=== PATIENT | male | born 1935 | race Caucasian/White ===

== ENCOUNTER → 2019-11-24 | Outpatient (CLI) | payer MEDICARE ==
--- NOTE | 2019-11-25 10:38 | ECHOF ---
Referral Reason:I25.10 Atherosclerotic heart disease MEASUREMENTS -------- HEIGHT: 185.4 cm WEIGHT: 82.6 kg BP: 193/102 RVIDd: 3.5 cm (< 3.3) IVSd: 1.4 cm (0.6 - 1.1) LVIDd: 4.5 cm (3.9 - 5.3) LVPWd: 1.4 cm (0.6 - 1.1) IVSs: 1.8 cm LVIDs: 3.8 cm LVPWs: 1.8 cm LA Diam: 4.2 cm (2.7 - 3.8) LAESV Index (A-L): 36.28 ml/m Ao Diam: 3.3 cm (2.0 - 3.7) AV Cusp: 2.3 cm (1.5 - 2.6) MV EXCURSION: 11.800 mm (> 18.000) MV EF SLOPE: 102 mm/s (70 - 150) EPSS: 1.3 cm MV E Ignacio: 0.70 m/s MV DecT: 373 ms MV A Ignacio: 1.01 m/s MV E/A Ratio: 0.70 RAP: 5.00 mmHg RVSP: 22.97 mmHg FINDINGS -------- Sinus rhythm. This was a technically adequate study. History of open heart surgery The left ventricular size is normal. There is moderate concentric left ventricular hypertrophy. O verall left ventricular systolic function is mild-moderately impaired with, an EF between 40 - 45 %. The right ventricle is mildly enlarged. LA is moderately dilated 34-39 ml/m2 The right atrium is normal in size. Interatrial and interventricular septum intact. The aortic valve is trileaflet and appears structurally normal. The mitral valve leaflets are mildly thickened. Mild mitral regurgitation is present. Trace tricuspid regurgitation present. Right ventricular systolic pressure is normal at < 35 mmHg. Trace/mild (physiologic) pulmonic regurgitation. The aortic root size is normal. Normal inferior vena cava with normal inspiratory collapse consistent with estimated right atrial pre ssure of 5 mmHg. There is no pericardial effusion. CONCLUSIONS -------- 1. Sinus rhythm. 2. This was a technically adequate study. 3. History of open heart surgery 4. The left ventricular size is normal. 5. There is moderate concentric left ventricular hypertrophy. 6. Overall left ventricular systolic function is mild-moderately impaired with, an EF between 40 - 45 %. 7. The right ventricle is mildly enlarged. 8. LA is moderately dilated 34-39 ml/m2 9. The right atrium is normal in size. 10. Interatrial and interventricular septum intact. 11. The aortic valve is trileaflet and appears structurally normal. 12. The mitral valve leaflets are mildly thickened. 13. Mild mitral regurgitation is present. 14. Trace tricuspid regurgitation present. 15. Right ventricular systolic pressure is normal at < 35 mmHg. 16. Trace/mild (physiologic) pulmonic regurgitation. 17. The aortic root size is normal. 18. Normal inferior vena cava with normal inspiratory collapse consistent with estimated right atrial pressure of 5 mmHg. 19. There is no pericardial effusion. MANAGER TRAINEE: Yuki Bermeo RDCS
== END | disposition home or self-care (01) ==
LOC: RADECHMAIN 10:28
PROVIDERS: ATTEND Internal Medicine Geriatric Medicine
DX: I34.0 Nonrheumatic mitral (valve) insufficiency (principal); I37.1 Nonrheumatic pulmonary valve insufficiency; I51.7 Cardiomegaly; I25.10 Atherosclerotic heart disease of native coronary artery without angina pectoris
CPT/HCPCS: 93306

== ENCOUNTER 2020-03-03 19:23 | Emergency (ER) | payer MEDICARE ==
[2020-03-03 20:48] VITALS: RESP 20
[2020-03-03 20:48] LABS: Basophils % (A) 1 %; Eosinophils # (A) 0.3 k/uL (0-0.7); Eosinophils % (A) 5 %; HCT 35.7 % (39.0-53.0); HGB 11.5 gm/dL (13.0-17.5); Lymphocytes # (A) 1.1 k/uL (1.0-4.8); Lymphocytes % (A) 21 %; MCH 31.2 pg (25.0-35.0); MCHC 32.1 g/dL (31.0-37.0); MCV 97.3 fL (80.0-100.0); Monocytes # (A) 0.6 k/uL (0-1.0); Monocytes % (A) 11 %; Neutrophils # (A) 3.1 k/uL (1.3-7.7); Neutrophils % (A) 60 %; Platelet Count 161 k/uL (150-450); RBC 3.67 m/uL (4.30-5.90); RDW 13.1 % (11.5-15.5); WBC 5.2 k/uL (3.8-10.6)
[2020-03-03 20:54] LABS: Albumin 3.1 g/dL (3.5-5.0); Magnesium 1.9 mg/dL (1.6-2.3); Potassium 3.9 mmol/L (3.5-5.1); Total Bilirubin 0.5 mg/dL (0.2-1.3); Total Protein 5.9 g/dL (6.3-8.2)
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
--- NOTE | 2020-03-03 21:31 | XR ---
EXAMINATION TYPE: XR chest 2V DATE OF EXAM: 03/03/2020 COMPARISON: 06/27/2015 HISTORY: Chest pain TECHNIQUE: 2 view chest FINDINGS: The heart size is normal. Pulmonary vasculature is normal. There is a left lower lobe infil trate. Small left pleural effusion is present. Mild right lower lobe infiltrate may be present. IMPRESSION: 1. Bibasilar infiltrates with a small left pleural effusion.
[2020-03-03] MEDS ORDERED: FUROSEMIDE 10 MG/ML 2 ML VIAL IV ONE (21:53)
[2020-03-03 22:01] VITALS: BP 172/86; PULSE 76; TEMP 97.1
== END 2020-03-03 22:30 | disposition home or self-care (01) ==
LOC: EC 19:23
DX: R60.0 Localized edema (principal); J90 Pleural effusion, not elsewhere classified; D64.9 Anemia, unspecified; R94.4 Abnormal results of kidney function studies; R79.89 Other specified abnormal findings of blood chemistry; M79.606 Pain in leg, unspecified; I25.10 Atherosclerotic heart disease of native coronary artery without angina pectoris; J44.9 Chronic obstructive pulmonary disease, unspecified; E11.9 Type 2 diabetes mellitus without complications; E78.5 Hyperlipidemia, unspecified; I10 Essential (primary) hypertension; I25.2 Old myocardial infarction; N40.0 Benign prostatic hyperplasia without lower urinary tract symptoms; M19.90 Unspecified osteoarthritis, unspecified site; Z86.73 Personal history of transient ischemic attack (TIA), and cerebral infarction without residual deficits; Z95.1 Presence of aortocoronary bypass graft; Z95.818 Presence of other cardiac implants and grafts; Z96.653 Presence of artificial knee joint, bilateral; Z87.891 Personal history of nicotine dependence; Z79.84 Long term (current) use of oral hypoglycemic drugs; Z79.899 Other long term (current) drug therapy
CPT/HCPCS: 36415; 93005; 83880; 80053; 83735; 84484; 85025; 71046; 99284; 96374; J1940

== ENCOUNTER → 2020-03-16 | Outpatient (CLI) | payer MEDICARE ==
--- NOTE | 2020-03-17 12:00 | ECHOF ---
Referral Reason:I50.9 Heart failure, unspecified MEASUREMENTS -------- HEIGHT: 180.3 cm WEIGHT: 81.6 kg BP: RVIDd: 3.6 cm (< 3.3) IVSd: 1.3 cm (0.6 - 1.1) LVIDd: 4.1 cm (3.9 - 5.3) LVPWd: 1.3 cm (0.6 - 1.1) IVSs: 2.0 cm LVIDs: 2.6 cm LVPWs: 2.4 cm LAESV Index (A-L): 22.20 ml/m Ao Diam: 2.8 cm (2.0 - 3.7) AV Cusp: 2.2 cm (1.5 - 2.6) LA Diam: 3.1 cm (2.7 - 3.8) MV EXCURSION: 18.742 mm (> 18.000) MV EF SLOPE: 99 mm/s (70 - 150) EPSS: 2.1 cm MV E Ignacio: 0.71 m/s MV DecT: 300 ms MV A Ignacio: 0.94 m/s MV E/A Ratio: 0.75 RAP: 5.00 mmHg RVSP: 15.70 mmHg TAPSE: 19.78 mm FINDINGS -------- Sinus rhythm with extra systolic beats. This was a technically good study. The left ventricular size is normal. There is mild concentric left ventricular hypertrophy. Overa ll left ventricular systolic function is low-normal with, an EF between 50 - 55 %. There is paradox ical/dysynergic septal motion consistent with post-operative status. The diastolic filling pattern is normal for the age of the patient 10.40. The right ventricle is mildly enlarged. The right ventricular systolic function is normal. The left atrial size is normal. Normal LA size by volume 22+/-6 ml/m2. The right atrial size is normal. The aortic valve is trileaflet and appears structurally normal. The mitral valve is normal. There is trace mitral regurgitation. The tricuspid valve appears structurally normal. Mild tricuspid regurgitation present. Right vent ricular systolic pressure is normal at < 35 mmHg. There is no pulmonic regurgitation present. The aortic root size is normal. IVC Not well visulized. There is no pericardial effusion. CONCLUSIONS -------- 1. Sinus rhythm with extra systolic beats. 2. This was a technically good study. 3. The left ventricular size is normal. 4. There is mild concentric left ventricular hypertrophy. 5. Overall left ventricular systolic function is low-normal with, an EF between 50 - 55 %. 6. There is paradoxical/dysynergic septal motion consistent with post-operative status. 7. The diastolic filling pattern is normal for the age of the patient 10.40 8. The right ventricle is mildly enlarged. 9. The right ventricular systolic function is normal. 10. The left atrial size is normal. 11. Normal LA size by volume 22+/-6 ml/m2. 12. The right atrial size is normal. 13. The aortic valve is trileaflet and appears structurally normal. 14. The mitral valve is normal. 15. There is trace mitral regurgitation. 16. The tricuspid valve appears structurally normal. 17. Mild tricuspid regurgitation present. 18. Right ventricular systolic pressure is normal at < 35 mmHg. 19. There is no pulmonic regurgitation present. 20. The aortic root size is normal. 21. IVC Not well visulized. 22. There is no pericardial effusion. MEDICAL EDUCATION MANAGER: Katalina Bethea RDCS
== END | disposition home or self-care (01) ==
LOC: RADECHMAIN 13:47
PROVIDERS: ATTEND Internal Medicine Geriatric Medicine
DX: I07.1 Rheumatic tricuspid insufficiency (principal)
CPT/HCPCS: 93306

== ENCOUNTER 2020-04-08 16:07 | Inpatient (IN) | payer MEDICARE ==
[2020-04-08] MEDS ORDERED: DILTIAZEM 125 MG in SODIUM CHLORIDE 0.9% 100 ML IV SCH (16:30)
[2020-04-08] MEDS ORDERED: SODIUM CHLORIDE 0.9% 1,000 ML IV STA (16:30)
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
[2020-04-08 16:59] LABS: Basophils % (A) 0 %; Eosinophils # (A) 0.1 k/uL (0-0.7); Eosinophils % (A) 2 %; HCT 43.3 % (39.0-53.0); HGB 13.6 gm/dL (13.0-17.5); Lymphocytes # (A) 0.6 k/uL (1.0-4.8); Lymphocytes % (A) 8 %; MCH 31.2 pg (25.0-35.0); MCHC 31.5 g/dL (31.0-37.0); MCV 99.1 fL (80.0-100.0); Mean Platelet Volume 9.7; Monocytes # (A) 0.4 k/uL (0-1.0); Monocytes % (A) 6 %; Neutrophils # (A) 6.3 k/uL (1.3-7.7); Neutrophils % (A) 84 %; Platelet Count 125 k/uL (150-450); RBC 4.37 m/uL (4.30-5.90); RDW 13.1 % (11.5-15.5); WBC 7.5 k/uL (3.8-10.6)
--- NOTE | 2020-04-08 17:14 | XR ---
EXAMINATION TYPE: XR chest 2V DATE OF EXAM: 04/08/2020 COMPARISON: 03/03/2020 HISTORY: Chest pain TECHNIQUE: There is some coarse interstitial infiltrate in the lower lobes. There is blunting left co stophrenic angle. There are sternal wires. There are chest leads. Bony thorax is intact. FINDINGS: IMPRESSION: Interstitial pulmonary infiltrates. There is some coalescent infiltrate left lower lobe w ith pleural fluid improved slightly compared to old exam. No gross heart failure.
[2020-04-08 17:37] LABS: Albumin 3.9 g/dL (3.5-5.0); Calcium 8.8 mg/dL (8.4-10.2); Magnesium 1.9 mg/dL (1.6-2.3); Total Bilirubin 0.7 mg/dL (0.2-1.3); Total Protein 6.9 g/dL (6.3-8.2)
[2020-04-08 17:43] LABS: Potassium 4.6 mmol/L (3.5-5.1)
[2020-04-08 17:45] LABS: Partial Thromboplastin Time 22.8 sec (22.0-30.0); Prothrombin Time 10.7 sec (9.0-12.0)
[2020-04-08] MEDS ORDERED: HEPARIN SODIUM,PORCINE 5,000 UNIT/ML 1 ML VIAL IV ONE (18:14)
[2020-04-08] MEDS ORDERED: NITROGLYCERIN SL TABS 0.4 MG TAB SUBLINGUAL PRN (18:16)
[2020-04-08] MEDS: HEPARIN SOD,PORK IN 0.45% NACL 25,000 UNIT in 0.45% NACL 1 250ML.BAG IV SCH (18:44)
[2020-04-08 20:39] LABS: Glucose,Whole Blood 138 mg/dL (75-99)
[2020-04-09 06:17] LABS: Glucose,Whole Blood 104 mg/dL (75-99)
[2020-04-09] MEDS: INSULIN ASPART (NovoLOG) 100 UNIT/ML VIAL SQ SCH ×4 (06:26→20:54)
[2020-04-09] MEDS: SUCRALFATE 1 GM TAB PO SCH ×3 (06:27→17:46)
[2020-04-09 08:22] LABS: Cholesterol 105 mg/dL (<200); HDL Cholesterol 38 mg/dL (40-60); LDL Cholesterol,Calculated 57 mg/dL (0-99); Triglycerides 51 mg/dL (<150)
[2020-04-09] MEDS ORDERED: ASPIRIN 325 MG TAB PO SCH (09:00)
[2020-04-09] MEDS: SPIRONOLACTONE 25 MG TAB PO SCH (09:41)
[2020-04-09] MEDS: GABAPENTIN 100 MG CAP PO SCH ×2 (09:41→20:03)
[2020-04-09] MEDS: FUROSEMIDE 40 MG TAB PO SCH (09:42)
[2020-04-09] MEDS: TAMSULOSIN 0.4 MG CAP.ER.24H PO SCH (09:42)
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
[2020-04-09 12:20] LABS: Glucose,Whole Blood 105 mg/dL (75-99)
[2020-04-09 12:42] LABS: T4, Free (Free Thyroxine) 1.24 ng/dL (0.78-2.19)
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
[2020-04-09 17:32] LABS: Glucose,Whole Blood 86 mg/dL (75-99)
[2020-04-09] MEDS: APIXABAN 2.5 MG TABLET PO SCH (20:03)
[2020-04-09] MEDS: ATORVASTATIN 20 MG TAB PO SCH (20:03)
[2020-04-09 20:08] LABS: Glucose,Whole Blood 110 mg/dL (75-99)
[2020-04-09] MEDS ORDERED: APIXABAN 5 MG TAB PO SCH (21:00)
[2020-04-10 06:13] LABS: Glucose,Whole Blood 108 mg/dL (75-99)
[2020-04-10] MEDS: INSULIN ASPART (NovoLOG) 100 UNIT/ML VIAL SQ SCH ×4 (06:57→20:43)
[2020-04-10] MEDS: SUCRALFATE 1 GM TAB PO SCH ×3 (06:58→18:27)
[2020-04-10] MEDS: HEPARIN SOD,PORK IN 0.45% NACL 25,000 UNIT in 0.45% NACL 1 250ML.BAG IV SCH (08:08)
[2020-04-10] MEDS: APIXABAN 2.5 MG TABLET PO SCH ×2 (09:36→20:42)
[2020-04-10] MEDS: TAMSULOSIN 0.4 MG CAP.ER.24H PO SCH (09:36)
[2020-04-10] MEDS: FUROSEMIDE 40 MG TAB PO SCH (09:36)
[2020-04-10] MEDS: GABAPENTIN 100 MG CAP PO SCH ×2 (09:36→20:43)
[2020-04-10] MEDS: SPIRONOLACTONE 25 MG TAB PO SCH (09:36)
[2020-04-10] MEDS: ASPIRIN 81 MG PO SCH (09:36)
[2020-04-10 11:24] LABS: Calcium 8.4 mg/dL (8.4-10.2); Potassium 4.3 mmol/L (3.5-5.1)
[2020-04-10 11:55] LABS: Glucose,Whole Blood 98 mg/dL (75-99)
[2020-04-10] MEDS: METOPROLOL TARTRATE 25 MG TAB PO SCH ×2 (13:21→20:45)
[2020-04-10] MEDS: LOSARTAN 50 MG TAB PO SCH (13:21)
--- NOTE | 2020-04-10 14:31 | PN ---
PROGRESS NOTE Mr. Stock is a gentleman who came in with her atrial fibrillation, rapid ventricular rate, converted to sinus rhythm. He is resting comfortably. His blood pressure is slightly elevated. I am switching him to amlodipine, decreased to 5 mg daily at bedtime and losartan 50 mg daily. He is resting comfortably, maintaining sinus rhythm. Denies any chest discomfort at the time of my evaluation. The patient can be discharged today if he remains stable with increased activity. I will, however, recommend that we perform an echocardiogram to assess LV function prior to discharge. Vitals are stable, no JVD, S1-S2 heard normally. Short systolic murmur noted. Lungs reveal diminished air entry. Abdomen and lower extremity exam unchanged. Plan is to continue current medications including his apixaban 2.5 mg b.i.d. because of creatinine being slightly high. I am placing him on Lopressor 25 mg b.i.d., losartan 50 mg daily. Increase activity and he can hopefully be discharged later on today after checking the echo. Discussed my thoughts in detail with the patient. Vital signs are stable, no JVD, S1-S2 heard normally, short systolic murmur. Lungs reveal improved entry. Abdomen and lower extremity exam unchanged. MMODL / IJN: [id number] /
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
[2020-04-10 17:10] LABS: Glucose,Whole Blood 137 mg/dL (75-99)
[2020-04-10] MEDS: ATORVASTATIN 20 MG TAB PO SCH (20:42)
[2020-04-10 20:45] LABS: Glucose,Whole Blood 99 mg/dL (75-99)
[2020-04-10] MEDS ORDERED: amLODIPine 5 MG TAB PO SCH (21:00)
--- NOTE | 2020-04-10 23:01 | EEG ---
ELECTROENCEPHALOGRAM REPORT DATE OF SERVICE: 04/10/2020. REPORTED HISTORY: This is an 85-year-old gentleman with a history of asthma, coronary artery disease, COPD, stroke, hypertension, who presented to the hospital after feeling weak and having a syncopal episode. He has been complaining of lightheadedness. He does have some recent falls over the last couple of weeks. EEG TYPE: This is a 21-channel routine EEG recording. DESCRIPTION: Wakefulness and drowsiness are obtained during the study. During wakefulness, there is a posterior-dominant rhythm of low to moderate voltage, reactive. It is well modulated, of 7 to 7.5 Hz activity that is well sustained. During drowsiness, there is slowing and attenuation of the background activity. There is no stage II sleep activity seen during the study. There is rare generalized rhythmic delta activity with frontal predominance. Interictal and ictal: None. ACTIVATION PROCEDURE: Photic stimulation did not evoke positive driving response. Hyperventilation was not performed because of the patient's clinical history. EEG DIAGNOSIS: This is an abnormal routine EEG due to: 1. Rare generalized rhythmic delta activity with frontal predominance. 2. Mild background slowing. CLINICAL INTERPRETATION: The background slowing is suggestive of presence of mild to moderate encephalopathy of unspecific etiology. There is no epileptiform or seizure noted during this routine EEG. Clinical correlation is recommended. MMODL / IJN: [id number] /
[2020-04-11 03:39] VITALS: RESP 18
[2020-04-11 06:06] LABS: Glucose,Whole Blood 97 mg/dL (75-99)
[2020-04-11] MEDS: INSULIN ASPART (NovoLOG) 100 UNIT/ML VIAL SQ SCH (06:11)
[2020-04-11 06:42] LABS: Calcium 8.5 mg/dL (8.4-10.2); Potassium 4.4 mmol/L (3.5-5.1)
[2020-04-11] MEDS: SUCRALFATE 1 GM TAB PO SCH (06:48)
[2020-04-11] MEDS: FUROSEMIDE 40 MG TAB PO SCH (08:42)
[2020-04-11] MEDS: GABAPENTIN 100 MG CAP PO SCH (08:42)
[2020-04-11] MEDS: APIXABAN 2.5 MG TABLET PO SCH (08:42)
[2020-04-11] MEDS: METOPROLOL TARTRATE 25 MG TAB PO SCH (08:42)
[2020-04-11] MEDS: ASPIRIN 81 MG PO SCH (08:42)
[2020-04-11] MEDS: SPIRONOLACTONE 25 MG TAB PO SCH (08:42)
[2020-04-11] MEDS: LOSARTAN 50 MG TAB PO SCH (08:42)
[2020-04-11] MEDS: TAMSULOSIN 0.4 MG CAP.ER.24H PO SCH (08:42)
[2020-04-11 08:45] VITALS: BP 177/74; PULSE 65; TEMP 97.4
--- NOTE | 2020-04-11 12:17 | PN ---
PROGRESS NOTE This is a gentleman, 85 years of age with a history of prior bypass surgery, came in with paroxysmal atrial fibrillation, was seen and evaluated by Dr. Harris. He is now in sinus rhythm, maintaining he is on anticoagulation and beta blockers doing well, ambulating without symptoms. Vitals are stable. No JVD. S1, S2 heard normally. His ejection systolic murmur audible, second heart sound is preserved. Lungs are clear. Abdomen and lower extremity exam unchanged. Plan is to continue current medications, increase activity and he can be discharged and he will see Dr. Harris in 1-2 weeks. MMODL / IJN: [id number] /
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
== END 2020-04-11 09:59 | disposition home health service (06) | DRG 309 ==
LOC: EC 16:07 → 3SCARD 18:16
PROVIDERS: ADMIT Internal Medicine Geriatric Medicine; ATTEND Internal Medicine Geriatric Medicine
DX: I48.4 Atypical atrial flutter (principal); N17.9 Acute kidney failure, unspecified; I48.0 Paroxysmal atrial fibrillation; R00.1 Bradycardia, unspecified; J43.9 Emphysema, unspecified; M15.9 Polyosteoarthritis, unspecified; N18.3 Chronic kidney disease, stage 3 (moderate); K21.9 Gastro-esophageal reflux disease without esophagitis; N40.0 Benign prostatic hyperplasia without lower urinary tract symptoms; I25.2 Old myocardial infarction; Z86.73 Personal history of transient ischemic attack (TIA), and cerebral infarction without residual deficits; Z79.82 Long term (current) use of aspirin; Z79.84 Long term (current) use of oral hypoglycemic drugs; Z79.899 Other long term (current) drug therapy; E11.22 Type 2 diabetes mellitus with diabetic chronic kidney disease; E78.00 Pure hypercholesterolemia, unspecified; E78.5 Hyperlipidemia, unspecified; I12.9 Hypertensive chronic kidney disease with stage 1 through stage 4 chronic kidney disease, or unspecified chronic kidney disease; I25.10 Atherosclerotic heart disease of native coronary artery without angina pectoris; Z80.42 Family history of malignant neoplasm of prostate; Z82.0 Family history of epilepsy and other diseases of the nervous system; Z87.891 Personal history of nicotine dependence; Z11.59 Encounter for screening for other viral diseases; Z91.81 History of falling; Z95.1 Presence of aortocoronary bypass graft; Z96.653 Presence of artificial knee joint, bilateral; Z98.42 Cataract extraction status, left eye; Z98.41 Cataract extraction status, right eye; Z96.1 Presence of intraocular lens; K08.89 Other specified disorders of teeth and supporting structures; Z66 Do not resuscitate; J45.909 Unspecified asthma, uncomplicated; Z82.3 Family history of stroke
CPT/HCPCS: 36415; 71046; 80048; 80053; 80061; 83735; 84439; 84443; 84484; 85025; 85610; 85730; 93005; 95816; 96361; 96365; 96366; 96368; 96376; 99291

== ENCOUNTER 2020-04-11 12:02 | Emergency (ER) | payer MEDICARE ==
[2020-04-11 12:13] VITALS: TEMP 97.8
[2020-04-11] MEDS ORDERED: SODIUM CHLORIDE 0.9% 1,000 ML IV STA ×2 (12:29)
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
[2020-04-11 12:56] LABS: Basophils % (A) 0 %; Eosinophils # (A) 0.2 k/uL (0-0.7); Eosinophils % (A) 2 %; HCT 38.4 % (39.0-53.0); HGB 13.1 gm/dL (13.0-17.5); Lymphocytes # (A) 0.8 k/uL (1.0-4.8); Lymphocytes % (A) 11 %; MCH 33.3 pg (25.0-35.0); MCHC 34.1 g/dL (31.0-37.0); MCV 97.6 fL (80.0-100.0); Mean Platelet Volume 9.3; Monocytes # (A) 0.5 k/uL (0-1.0); Monocytes % (A) 7 %; Neutrophils # (A) 5.9 k/uL (1.3-7.7); Neutrophils % (A) 79 %; Platelet Count 175 k/uL (150-450); RBC 3.93 m/uL (4.30-5.90); RDW 13.3 % (11.5-15.5); WBC 7.5 k/uL (3.8-10.6)
[2020-04-11 12:59] LABS: Albumin 3.6 g/dL (3.5-5.0); Calcium 8.7 mg/dL (8.4-10.2); Magnesium 1.8 mg/dL (1.6-2.3); Potassium 4.7 mmol/L (3.5-5.1); Total Bilirubin 0.6 mg/dL (0.2-1.3); Total Protein 6.3 g/dL (6.3-8.2)
[2020-04-11 13:17] LABS: D-Dimer 0.49 mg/L FEU (<0.60); INR 1.1 (<1.2); Partial Thromboplastin Time 34.1 sec (22.0-30.0)
--- NOTE | 2020-04-11 13:19 | XR ---
EXAMINATION TYPE: XR chest 1V portable DATE OF EXAM: 04/11/2020 COMPARISON: 04/08/2020 INDICATION: Syncope acute mental status changes TECHNIQUE: Single frontal view of the chest is obtained. FINDINGS: The heart size is normal. The pulmonary vasculature is normal. There is a small left pleural effusion. Mild scattered infiltrates at the bilateral lung bases. IMPRESSION: 1. Small left pleural effusion. 2. Mild bibasilar infiltrates. Follow-up is recommended.
--- NOTE | 2020-04-11 13:25 | CT ---
EXAMINATION TYPE: CT brain wo con DATE OF EXAM: 04/11/2020 COMPARISON: CT brain 03/30/2015 HISTORY: Syncopal episode, unresponsive CT DLP: 1099.4 mGycm Automated exposure control for dose reduction was used. Head CT performed using departmental protocol . FINDINGS: There are cerebral vascular calcifications. Cortical atrophy is present. Periventricular white matter shows patchy low attenuation, there is encephalomalacia in the region adjacent to the frontal horn o f the right lateral ventricle, associated ex vacuo phenomenon. Encephalomalacia also present in the l eft parietal lobe posteriorly and anterior right frontal lobe towards the convexity. Lacunar infarct present in the bilateral basal ganglia. There is no hemorrhage or hydrocephalus. IMPRESSION: CHRONIC SMALL VESSEL ISCHEMIC CHANGES. AGE-RELATED ATROPHY.
[2020-04-11 14:11] LABS: Appearance,Urine Clear (Clear); Bilirubin,Urine Negative (Negative); Blood,Urine Negative (Negative); Color,Urine Light Yellow; Glucose,Urine (UA) Negative (Negative); Ketones,Urine Negative (Negative); Leukocyte Esterase,Urine Negative (Negative); Nitrite,Urine Negative (Negative); PH, Urine 5.5 (5.0-8.0); Protein,Urine Trace (Negative); Specific Gravity,Urine 1.011 (1.001-1.035); Urobilinogen,Urine <2.0 mg/dL (<2.0)
[2020-04-11 15:29] VITALS: BP 141/89; PULSE 89; RESP 16
== END 2020-04-11 15:28 | disposition home or self-care (01) ==
LOC: EC 12:02
DX: I95.1 Orthostatic hypotension (principal); E86.0 Dehydration; R32 Unspecified urinary incontinence; G89.29 Other chronic pain; I25.10 Atherosclerotic heart disease of native coronary artery without angina pectoris; E11.9 Type 2 diabetes mellitus without complications; K21.9 Gastro-esophageal reflux disease without esophagitis; E78.5 Hyperlipidemia, unspecified; I10 Essential (primary) hypertension; M19.90 Unspecified osteoarthritis, unspecified site; N40.0 Benign prostatic hyperplasia without lower urinary tract symptoms; Z86.73 Personal history of transient ischemic attack (TIA), and cerebral infarction without residual deficits; Z95.1 Presence of aortocoronary bypass graft; Z95.818 Presence of other cardiac implants and grafts; Z96.653 Presence of artificial knee joint, bilateral; Z87.891 Personal history of nicotine dependence; Z79.84 Long term (current) use of oral hypoglycemic drugs; Z79.899 Other long term (current) drug therapy
CPT/HCPCS: 36415; 70450; 71045; 80053; 81003; 82550; 83735; 84484; 85025; 85379; 85610; 85730; 93005; 96360; 96361; 99285

== ENCOUNTER → 2020-04-11 | Outpatient (CLI) | payer MEDICARE ==
--- NOTE | 2020-05-19 21:45 | EM ---
CARDIAC ELECTROPHYSIOLOGY REPORT 30 DAY EVENT MONITOR: REFERRING DOCTOR: Dr. Shmuel Miller. INDICATION: Cardiac arrhythmia. The patient was monitored for 30 days. The baseline rhythm appeared to be sinus mechanism. During these 4 days monitoring, the patient did have frequent ventricular ectopy presented mainly as PVCs and also presented mainly as ventricular bigeminy and ventricular trigeminy. Beside that, the patient did have multiple episodes of sinus bradycardia with a heart rate in the 50s. No significant supraventricular arrhythmia noted. No advanced AV block seen. The main dominant on the picture is frequent ventricular ectopies in the terms of PVCs. CONCLUSION: 1. This is a 30-day event monitor. 2. Sinus rhythm as a baseline mechanism. 3. Frequent ventricular ectopic events presented and presented as PVCs as well as in bigeminy and trigeminy. 4. No evidence of significant sinus pause or sinus arrest seen. 5. No evidence of any supraventricular arrhythmia noted. MMODL / IJN: [id number] /
== END | disposition home or self-care (01) ==
LOC: CARD 15:35
PROVIDERS: ATTEND Emergency Medicine
DX: R55 Syncope and collapse (principal)
CPT/HCPCS: 93270

== ENCOUNTER 2020-10-10 11:21 | Emergency (ER) | payer MEDICARE, OTHER ==
[2020-10-10] MEDS ORDERED: SODIUM CHLORIDE 0.9% 500 ML 500 ML IV STA (11:56)
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
[2020-10-10 12:25] VITALS: RESP 16
[2020-10-10 13:04] LABS: Basophils % (A) 1 %; Eosinophils # (A) 0.3 k/uL (0-0.7); Eosinophils % (A) 6 %; HCT 34.7 % (39.0-53.0); HGB 11.4 gm/dL (13.0-17.5); Lymphocytes # (A) 0.9 k/uL (1.0-4.8); Lymphocytes % (A) 19 %; MCH 32.1 pg (25.0-35.0); MCHC 32.8 g/dL (31.0-37.0); MCV 97.7 fL (80.0-100.0); Mean Platelet Volume 8.4; Monocytes # (A) 0.5 k/uL (0-1.0); Monocytes % (A) 10 %; Neutrophils # (A) 2.9 k/uL (1.3-7.7); Neutrophils % (A) 61 %; Platelet Count 183 k/uL (150-450); RBC 3.55 m/uL (4.30-5.90); RDW 12.9 % (11.5-15.5); WBC 4.7 k/uL (3.8-10.6)
[2020-10-10 13:08] LABS: Appearance,Urine Clear (Clear); Bilirubin,Urine Negative (Negative); Blood,Urine Negative (Negative); Color,Urine Yellow; Glucose,Urine (UA) Negative (Negative); Ketones,Urine Negative (Negative); Leukocyte Esterase,Urine Negative (Negative); Nitrite,Urine Negative (Negative); PH, Urine 5.5 (5.0-8.0); Protein,Urine Trace (Negative); Specific Gravity,Urine 1.013 (1.001-1.035); Urobilinogen,Urine <2.0 mg/dL (<2.0)
[2020-10-10 13:20] LABS: Prothrombin Time 10.9 sec (9.0-12.0)
[2020-10-10 13:23] LABS: Albumin 3.4 g/dL (3.5-5.0); Calcium 8.2 mg/dL (8.4-10.2); Potassium 4.1 mmol/L (3.5-5.1); Total Bilirubin 0.4 mg/dL (0.2-1.3); Total Protein 6.1 g/dL (6.3-8.2)
[2020-10-10 14:22] VITALS: BP 152/81; PULSE 56; TEMP 97.6
== END 2020-10-10 14:20 | disposition home or self-care (01) ==
LOC: EC 11:21
DX: R25.2 Cramp and spasm (principal); N40.0 Benign prostatic hyperplasia without lower urinary tract symptoms; K21.9 Gastro-esophageal reflux disease without esophagitis; E11.9 Type 2 diabetes mellitus without complications; E78.5 Hyperlipidemia, unspecified; I10 Essential (primary) hypertension; Z79.84 Long term (current) use of oral hypoglycemic drugs; Z79.899 Other long term (current) drug therapy; Z87.891 Personal history of nicotine dependence; Z95.5 Presence of coronary angioplasty implant and graft; Z95.1 Presence of aortocoronary bypass graft; Z98.42 Cataract extraction status, left eye; Z98.41 Cataract extraction status, right eye; Z96.1 Presence of intraocular lens; Z96.653 Presence of artificial knee joint, bilateral; Z86.73 Personal history of transient ischemic attack (TIA), and cerebral infarction without residual deficits
CPT/HCPCS: 36415; 80053; 81003; 85025; 85610; 85730; 96360; 99283

== ENCOUNTER 2021-02-12 09:01 | Emergency (ER) | payer OTHER ==
[2021-02-12 09:12] VITALS: TEMP 98.4
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
[2021-02-12 09:55] LABS: Basophils % (A) 0 %; Eosinophils # (A) 0.2 k/uL (0-0.7); Eosinophils % (A) 3 %; HCT 33.9 % (39.0-53.0); HGB 11.5 gm/dL (13.0-17.5); Lymphocytes # (A) 0.6 k/uL (1.0-4.8); Lymphocytes % (A) 8 %; MCH 33.7 pg (25.0-35.0); MCHC 33.8 g/dL (31.0-37.0); MCV 99.9 fL (80.0-100.0); Mean Platelet Volume 8.4; Monocytes # (A) 0.8 k/uL (0-1.0); Monocytes % (A) 10 %; Neutrophils % (A) 78 %; Platelet Count 144 k/uL (150-450); RDW 12.8 % (11.5-15.5); WBC 7.7 k/uL (3.8-10.6)
[2021-02-12 10:04] LABS: Albumin 3.5 g/dL (3.5-5.0); Calcium 8.4 mg/dL (8.4-10.2); Potassium 4.5 mmol/L (3.5-5.1); Total Bilirubin 0.7 mg/dL (0.2-1.3); Total Protein 6.4 g/dL (6.3-8.2)
[2021-02-12 10:07] LABS: Amorphous Sediment,Urine Rare /hpf; Appearance,Urine Clear (Clear); Bilirubin,Urine Negative (Negative); Blood,Urine Trace (Negative); Color,Urine Yellow; Glucose,Urine (UA) Negative (Negative); Ketones,Urine Negative (Negative); Leukocyte Esterase,Urine Negative (Negative); Mucus,Urine Rare /hpf; Nitrite,Urine Negative (Negative); PH, Urine 5.5 (5.0-8.0); Protein,Urine 1+ (Negative); RBC,Urine 1 /hpf (0-5); Specific Gravity,Urine 1.014 (1.001-1.035); Urobilinogen,Urine <2.0 mg/dL (<2.0); WBC,Urine 1 /hpf (0-5)
--- NOTE | 2021-02-12 10:28 | XR ---
Thoracic spine HISTORY: Fall 1 week prior, trauma and pain 3 views of the thoracic spine No previous available for comparison Patient is status post median sternotomy. Aorta is densely calcified. Thoracic vertebral bodies show preserved height. There is multilevel spondylosis. Reduced bone mineralization could limit evaluation . Some mild loss of disc height present at intervertebral levels. There is a gentle spinal curvature. Interstitial changes are present within the lungs. IMPRESSION: No fracture or subluxation is evident, bone scan or MRI may be of benefit for additional evaluation. Low bone mineralization, mild spinal curvature, degenerative disc disease. Interstitial l denise disease.
[2021-02-12] MEDS ORDERED: HYDROmorphone 0.5 MG/0.5 ML SYRINGE IVP STA (10:47)
[2021-02-12] MEDS ORDERED: KETOROLAC 15 MG/ML 1 ML VIAL IVP STA (10:48)
[2021-02-12 12:40] VITALS: BP 132/65; PULSE 83; RESP 20
== END 2021-02-12 12:40 | disposition home or self-care (01) ==
LOC: EC 09:01
DX: M54.6 Pain in thoracic spine (principal); M54.5 Low back pain; I48.91 Unspecified atrial fibrillation; I25.10 Atherosclerotic heart disease of native coronary artery without angina pectoris; E11.9 Type 2 diabetes mellitus without complications; K21.9 Gastro-esophageal reflux disease without esophagitis; J43.9 Emphysema, unspecified; E78.5 Hyperlipidemia, unspecified; I10 Essential (primary) hypertension; M19.90 Unspecified osteoarthritis, unspecified site; Z86.73 Personal history of transient ischemic attack (TIA), and cerebral infarction without residual deficits; Z87.891 Personal history of nicotine dependence; Z79.82 Long term (current) use of aspirin
CPT/HCPCS: 36415; 80053; 82150; 83690; 85025; 81001; 72072; 99284; 96374; J1885

== ENCOUNTER → 2021-02-23 | Outpatient (CLI) | payer MEDICARE, OTHER ==
--- NOTE | 2021-02-23 20:13 | NM ---
EXAMINATION TYPE: NM bone scan whole body DATE OF EXAM: 02/23/2021 COMPARISON: Plain film from outside institution from 02/13/2021, x-ray thoracic spine 02/12/2021 HISTORY: M47.817 spondylosis Delayed whole-body scanning was performed following the injection of 23.8 mCi Tc 99m MDP. Images acq uired 3 hours post injection. Whole-body scanning was performed as well as imaging of the spine FINDINGS: There is bandlike uptake present within the L1 and L2 vertebral bodies likely corresponding to the contreras perior endplate levels as noted on plain film from outside institution. Some mild uptake present at t he L3-4 level is likely due to degenerative disc disease. There is some decreased uptake seen associa pb with the right kidney and superior pole of the left kidney. Mild spinal curvature is noted. IMPRESSION: Osteoporotic compression fractures L1 and L2 superior endplates. Degenerative disc disease. Soft tiss ue uptake is abnormal as described. There may be cortical cyst of the upper pole left kidney, low fun ctioning right kidney.
== END | disposition home or self-care (01) ==
LOC: RADNMMAIN 11:00
PROVIDERS: ATTEND Physical Medicine & Rehabilitation
DX: M80.08XA Age-related osteoporosis with current pathological fracture, vertebra(e), initial encounter for fracture (principal); M51.36 Other intervertebral disc degeneration, lumbar region
CPT/HCPCS: 78306; A9503

== ENCOUNTER 2021-03-12 | Observation (INO) | payer MEDICARE, OTHER | END 2021-03-14 16:55 | PROVIDERS: ADMIT Family Medicine | DX: E86.0 Dehydration (principal); N17.9 Acute kidney failure, unspecified; J43.9 Emphysema, unspecified; R07.9 Chest pain, unspecified; I12.9 Hypertensive chronic kidney disease with stage 1 through stage 4 chronic kidney disease, or unspecified chronic kidney disease; N18.4 Chronic kidney disease, stage 4 (severe); E11.22 Type 2 diabetes mellitus with diabetic chronic kidney disease; R19.7 Diarrhea, unspecified; D64.9 Anemia, unspecified; I25.10 Atherosclerotic heart disease of native coronary artery without angina pectoris; I48.0 Paroxysmal atrial fibrillation; N40.0 Benign prostatic hyperplasia without lower urinary tract symptoms; E78.5 Hyperlipidemia, unspecified; R27.0 Ataxia, unspecified; K21.9 Gastro-esophageal reflux disease without esophagitis; M19.90 Unspecified osteoarthritis, unspecified site; K08.89 Other specified disorders of teeth and supporting structures; Z79.899 Other long term (current) drug therapy; Z79.82 Long term (current) use of aspirin; Z95.1 Presence of aortocoronary bypass graft; Z91.81 History of falling; Z86.73 Personal history of transient ischemic attack (TIA), and cerebral infarction without residual deficits; Z86.79 Personal history of other diseases of the circulatory system; Z87.891 Personal history of nicotine dependence; Z87.828 Personal history of other (healed) physical injury and trauma; Z87.81 Personal history of (healed) traumatic fracture; Z98.42 Cataract extraction status, left eye; Z98.41 Cataract extraction status, right eye; Z96.1 Presence of intraocular lens; Z96.653 Presence of artificial knee joint, bilateral; Z90.79 Acquired absence of other genital organ(s); Z80.42 Family history of malignant neoplasm of prostate; Z82.0 Family history of epilepsy and other diseases of the nervous system; Z80.3 Family history of malignant neoplasm of breast; Z82.5 Family history of asthma and other chronic lower respiratory diseases; Z82.49 Family history of ischemic heart disease and other diseases of the circulatory system | CPT/HCPCS: 96361 ×3; 96365; 96366; 99285; 36415; 93005; 93306; 97162; 97166; 80053 ×2; 80048; 84443; 82533; 83605; 83735 ×2; 84484; 85025; 85610; 85730; 81003; 87324; 83036; 87635; 71046; 93970; G0378 ×3; J3475; 96360 ==

== ENCOUNTER 2021-04-04 06:22 | Inpatient (IN) | payer MEDICARE ==
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
[2021-04-04 07:44] LABS: Basophils % (A) 0 %; Eosinophils # (A) 0.1 k/uL (0-0.7); Eosinophils % (A) 1 %; HGB 12.9 gm/dL (13.0-17.5); Lymphocytes # (A) 1.3 k/uL (1.0-4.8); Lymphocytes % (A) 12 %; MCH 33.5 pg (25.0-35.0); MCHC 34.9 g/dL (31.0-37.0); MCV 96.1 fL (80.0-100.0); Mean Platelet Volume 8.2; Monocytes # (A) 1.1 k/uL (0-1.0); Monocytes % (A) 9 %; Neutrophils # (A) 8.8 k/uL (1.3-7.7); Neutrophils % (A) 77 %; Platelet Count 208 k/uL (150-450); RBC 3.85 m/uL (4.30-5.90); WBC 11.5 k/uL (3.8-10.6)
[2021-04-04] MEDS ORDERED: ACETAMINOPHEN TAB 325 MG TAB PO PRN (07:49)
[2021-04-04] MEDS ORDERED: ONDANSETRON 4 MG/2 ML VIAL IVP PRN (07:49)
[2021-04-04] MEDS ORDERED: NALOXONE 0.4 MG/ML 1 ML VIAL IV PRN (07:49)
[2021-04-04 07:54] LABS: Albumin 3.4 g/dL (3.5-5.0); Calcium 8.4 mg/dL (8.4-10.2); Potassium 4.6 mmol/L (3.5-5.1); Total Bilirubin 0.4 mg/dL (0.2-1.3)
[2021-04-04 08:21] LABS: Appearance,Urine Clear (Clear); Bilirubin,Urine Negative (Negative); Blood,Urine Negative (Negative); Color,Urine Colorless; Glucose,Urine (UA) Negative (Negative); Ketones,Urine Negative (Negative); Leukocyte Esterase,Urine Negative (Negative); Nitrite,Urine Negative (Negative); Protein,Urine Negative (Negative); Specific Gravity,Urine 1.007 (1.001-1.035); Urobilinogen,Urine <2.0 mg/dL (<2.0)
[2021-04-04] MEDS ORDERED: BACLOFEN 10 MG TAB PO PRN (10:02)
[2021-04-04] MEDS: SODIUM CHLORIDE 0.9% 1,000 ML IV SCH (10:08)
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
--- NOTE | 2021-04-04 12:48 | CT ---
EXAMINATION TYPE: CT abdomen pelvis wo con DATE OF EXAM: 04/04/2021 COMPARISON: None HISTORY: Diarrhea CT DLP: 635 mGycm Examination of the solid and hollow viscera is limited given the lack of contrast. FINDINGS: LUNG BASES: Cardiomegaly noted. Basilar reticulonodular infiltrates and left greater than right pleur al effusion. LIVER/GB: Cholelithiasis. Gallbladder is mildly distended. Mild pericholecystic fluid. No space-occup kan hepatic lesion. PANCREAS: No pancreatic mass identified. No inflammatory process seen. SPLEEN: No evidence for splenomegaly. No intrasplenic lesions seen. ADRENALS: No adrenal nodules identified. No evidence for thickening. KIDNEYS: Renal atrophic change. Hypoattenuating lesions left kidney may reflect cysts. No evidence fo r solid renal mass. No nephrolithiasis. No hydronephrosis. BOWEL: Appendix has a normal appearance. No evidence of bowel obstruction. No inflammatory process. Lymph nodes: No evidence for adenopathy greater than 1 cm. Abdominal aorta: Atheromatous changes seen. No evidence for aneurysm. Genital organs: Prostate gland enlargement. Other: No significant abnormality. IMPRESSION: 1.Basilar reticulonodular infiltrates and left greater than right pleural effusion. 2.Cholelithiasis. Gallbladder is mildly distended. Mild pericholecystic fluid.
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
[2021-04-04] MEDS: CYANOCOBALAMIN 500 MCG TAB PO SCH (14:47)
--- NOTE | 2021-04-04 15:52 | MR ---
EXAMINATION TYPE: MR lumbar spine wo con DATE OF EXAM: 04/04/2021 COMPARISON: CT 04/04/2021, bone scan 02/23/2021 HISTORY: Loss of bowel and bladder control, evaluate for cauda equina. TECHNIQUE: Multiplanar, multisequence images of the lumbar spine were acquired. There is motion on exam, artifact. T12-L1: No significant spinal stenosis or foraminal encroachment. No disc herniation. No significant retropulsion of the superior endplate. L1-L2: There is only minimal retropulsion of the superior endplate causing slight anterior mass effec t on the thecal sac. Facet arthropathy changes present. Circumferential extension of disc causes some minimal encroachment on the inferior aspect of the foramina. L2-L3: Normal disc appearance without desiccation. No herniation, protrusion or disc bulging. No ca nal stenosis is present. Foramina are patent bilaterally. There is some facet arthropathy change. L3-L4: Posterior broad-based disc bulge causes anterior mass effect on the thecal sac. Circumferentia l extension endplate disc complex results in some foraminal encroachment. No significant spinal steno sis. There is facet arthropathy with hypertrophy ligamentum flavum causing posterior lateral mass eff ect on the thecal sac. L4-L5: Posterior broad-based disc bulge extends circumferentially causes bilateral foraminal encroach ment right greater than left, there is effacement of anterior thecal sac due to central posterior dis c protrusion. Facet arthropathy with hypertrophy ligamentum flavum causes posterior lateral mass effe ct on the thecal sac, some encroachment on the lateral recess is suspected, no significant spinal andrei nosis. L5-S1: Posterior disc bulge extends circumferentially to cause some bilateral foraminal encroachment, there is posterior extension possibly contacting the anterior thecal sac, proximal S1 nerve roots. T here is associated facet arthropathy change with encroachment on the lateral recesses. No significant spinal stenosis. Lumbar segments are intact. No paraspinal masses are identified. Conus medullaris has a normal appe arance. Superior endplate of L1 and L2 show intermediate signal on T1, increased signal in T2-weighte d sequences, loss of height of approximately 25% consistent with endplate osteoporotic compression fr actures at L2 and L1. Inferior endplate of L3 shows a Schmorl's node formation, also noted inferior e ndplate L4. There is multilevel spondylosis. Loss of disc height is greatest at L3-4, there is multil evel loss of disc signal consistent with disc desiccation and degenerative disc disease. IMPRESSION: Degenerative disc disease disc disease, facet arthropathy, multilevel foraminal encroachment. Osteopo rotic compression fractures superior endplate L1 and L2.
[2021-04-04 16:38] LABS: Glucose,Whole Blood 174 mg/dL (75-99)
[2021-04-04] MEDS: amLODIPine 10 MG TAB PO SCH (20:09)
[2021-04-04] MEDS: METOPROLOL TARTRATE 50 MG TAB PO SCH (20:09)
[2021-04-04] MEDS: GABAPENTIN 100 MG CAP PO SCH (20:10)
[2021-04-04] MEDS: SUCRALFATE 1 GM TAB PO SCH (20:10)
[2021-04-04] MEDS: CARBIDOPA-LEVODOPA 25-100 MG 1 EACH TAB PO SCH (20:10)
[2021-04-04] MEDS: ATORVASTATIN 20 MG TAB PO SCH (20:10)
[2021-04-04 20:42] LABS: Glucose,Whole Blood 147 mg/dL (75-99)
[2021-04-05] MEDS: SODIUM CHLORIDE 0.9% 1,000 ML IV SCH ×2 (05:09→17:38)
[2021-04-05 05:54] LABS: Glucose,Whole Blood 113 mg/dL (75-99)
[2021-04-05] MEDS: ASPIRIN 81 MG PO SCH (08:20)
[2021-04-05] MEDS: METOPROLOL TARTRATE 50 MG TAB PO SCH ×2 (08:20→19:58)
[2021-04-05] MEDS: ISOSORBIDE MONONITRATE ER 30 MG TAB.ER.24H PO SCH (08:20)
[2021-04-05] MEDS: CYANOCOBALAMIN 500 MCG TAB PO SCH (08:20)
[2021-04-05] MEDS: TAMSULOSIN 0.4 MG CAP.ER.24H PO SCH (08:20)
[2021-04-05] MEDS: SUCRALFATE 1 GM TAB PO SCH ×2 (08:20→19:58)
[2021-04-05] MEDS: CARBIDOPA-LEVODOPA 25-100 MG 1 EACH TAB PO SCH ×2 (08:20→19:57)
[2021-04-05] MEDS: GABAPENTIN 100 MG CAP PO SCH ×2 (08:20→19:58)
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
[2021-04-05] MEDS ORDERED: DIPHENOX-ATROP 2.5-0.025 MG 1 EACH TAB PO SCH (10:30)
[2021-04-05] MEDS ORDERED: DIPHENOX-ATROP 2.5-0.025 MG 1 EACH TAB PO PRN (10:45)
[2021-04-05 11:33] LABS: Glucose,Whole Blood 146 mg/dL (75-99)
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
[2021-04-05 16:56] LABS: Glucose,Whole Blood 165 mg/dL (75-99)
[2021-04-05] MEDS ORDERED: MAGNESIUM OXIDE 400 MG TAB PO STA (17:02)
[2021-04-05 19:36] LABS: Glucose,Whole Blood 182 mg/dL (75-99)
[2021-04-05] MEDS: ATORVASTATIN 20 MG TAB PO SCH (19:57)
[2021-04-05] MEDS: amLODIPine 10 MG TAB PO SCH (19:58)
[2021-04-06 06:26] LABS: Glucose,Whole Blood 111 mg/dL (75-99)
--- NOTE | 2021-04-06 07:45 | XR ---
EXAMINATION TYPE: XR abdomen 2V DATE OF EXAM: 04/06/2021 6:32 AM CLINICAL HISTORY: 86-year-old male with diarrhea TECHNIQUE: Single supine KUB image of the abdomen is obtained. COMPARISON: 06/18/2015, CT of 04/04/2021. FINDINGS: There is a large amount of stool and gas throughout the colon and within the rectum. Retain ed oral barium is seen. No evidence of bowel obstruction. No definite free air on the supine study. S tatus post median sternotomy. Left basilar airspace interstitial opacity. Degenerative changes of the spine and hips. IMPRESSION: 1. Nonspecific, nonobstructive bowel gas pattern. Retained oral barium from prior CT is seen. 2. Left basilar interstitial airspace opacity.
[2021-04-06] MEDS: ASPIRIN 81 MG PO SCH (09:20)
[2021-04-06] MEDS: TAMSULOSIN 0.4 MG CAP.ER.24H PO SCH (09:20)
[2021-04-06] MEDS: METOPROLOL TARTRATE 50 MG TAB PO SCH (09:21)
[2021-04-06] MEDS: GABAPENTIN 100 MG CAP PO SCH ×2 (09:21→19:52)
[2021-04-06] MEDS: CYANOCOBALAMIN 500 MCG TAB PO SCH (09:21)
[2021-04-06] MEDS: ISOSORBIDE MONONITRATE ER 30 MG TAB.ER.24H PO SCH (09:21)
[2021-04-06] MEDS: CARBIDOPA-LEVODOPA 25-100 MG 1 EACH TAB PO SCH ×2 (09:21→19:52)
[2021-04-06] MEDS: SUCRALFATE 1 GM TAB PO SCH ×2 (09:22→19:52)
[2021-04-06] MEDS: SODIUM CHLORIDE 0.9% 1,000 ML IV SCH (09:26)
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
[2021-04-06 11:41] LABS: Glucose,Whole Blood 134 mg/dL (75-99)
--- NOTE | 2021-04-06 12:35 | P.PN ---
Subjective Progress Note Date: 04/06/21 Principal diagnosis: Diarrhea This is a 86-year-old gentleman who presented to emergency department with complaints of urinary and stool incontinence. He has only had one of bowel movement since he's been in the hospital, which the nursing staff states was formed and nonbloody. He's had no further episodes of diarrhea or stool incontinence. The patient however states he is having stool incontinence and had it all night, however the nursing staff is stating it is only urine. He denies any abdominal pain, nausea, or vomiting.abdominal x-ray showed nonspecific, non-obstructive bowel gas pattern. Retained rolled barium from prior CT is seen. Left basilar interstitial airspace obesity. Objective - Vital Signs Vital signs: Vital Signs Temp 97.5 F L 04/06/21 08:01 Pulse 61 04/06/21 08:01 Resp 20 04/06/21 08:01 BP 119/60 04/06/21 08:01 Pulse Ox 97 04/06/21 08:01 Intake & Output 04/05/21 04/06/21 04/06/21 18:59 06:59 18:59 Intake Total 1380 660 240 Balance 1380 660 240 Weight 75.4 kg Intake: Intake, IV Titration 300 660 Amount Sodium Chloride 0.9% 1, 300 660 000 ml @ 60 mls/hr IV . [id number] [facility] Rx#:[id number] Oral 1080 240 Other: Voiding Method Diaper Diaper Diaper # Voids 3 2 - Exam General appearance: The patient is alert, oriented, appears in no acute distress. HET: Head is normocephalic and atraumatic. Conjunctiva pink. Sclera anicteric. Neck: Supple without lymphadenopathy. Abdomen: Soft, nontender, nondistended with bowel sounds. No guarding or rigidity. Extremities: Normal skin color and turgor. No pedal edema Skin: No rashes, no jaundice Neurological: No focal deficits. Alert and oriented 3. - Labs CBC & Chem 7: 04/04/21 07:34 04/04/21 07:34 Labs: Abnormal Lab Results - Last 24 Hours (Table) 04/05/21 04/05/21 04/05/21 Range/Units 11:31 16:51 19:34 POC Glucose (mg/dL) 146 H 165 H 182 H (75-99) mg/dL 04/06/21 Range/Units 06:10 POC Glucose (mg/dL) 111 H (75-99) mg/dL Assessment and Plan (1) Diarrhea Narrative/Plan: 86-year-old male who presented to the emergency department with complaints of urinary and stool incontinence for 3-4 days. He states he was having loose bowel movements 3 times a day, denies any blood or black stool. He had no assoc iated nausea vomiting or abdominal pain. He denies any new medications or recent antibiotic use. Denies any sick contacts. States his colonoscopy was many years ago which he reports was normal. He states he has regular bowel movements which are normal in size daily. CT of the abdomen was unremarkable, other than basilar reticulonodular infiltrates and left greater than right pleural effusion. Clinical with sinuses. Gallbladder that is mildly distended with mild pericholecystic fluid. Patient is no longer having diarrhea. Possibilities include infectious or inflammatory. Will obtain abdominal x-ray tomorrow to see if there is overflow incontinence, also low and fiber for stool bulking. Diarrhea is improved. Current Visit: Yes Status: Acute Code(s): R19.7 - DIARRHEA, UNSPECIFIED SNOMED Code(s): 38432152 Plan: 1. Diet as tolerated 2. Stool studies ordered 3. FiberCon twice a day for stool bulking 4. Change Lomotil to 3 times a day as needed 5. Abdominal x-ray ordered and reviewed 6. No plans on endoscopic evaluation Thank you for this consultation, we we'll sign off at this time as patient has had no further stool incontinence Dr. Harris I agree with the dictator's note, documented as a scribe by Stella Jensen.
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
[2021-04-06 17:07] LABS: Glucose,Whole Blood 190 mg/dL (75-99)
[2021-04-06] MEDS: amLODIPine 10 MG TAB PO SCH (19:52)
[2021-04-06] MEDS: ATORVASTATIN 20 MG TAB PO SCH (19:52)
[2021-04-06 20:54] LABS: Glucose,Whole Blood 196 mg/dL (75-99)
[2021-04-07] MEDS: SODIUM CHLORIDE 0.9% 1,000 ML IV SCH ×2 (06:12→19:32)
[2021-04-07 06:31] LABS: Glucose,Whole Blood 132 mg/dL (75-99)
[2021-04-07] MEDS: GABAPENTIN 100 MG CAP PO SCH ×2 (08:22→20:21)
[2021-04-07] MEDS: TAMSULOSIN 0.4 MG CAP.ER.24H PO SCH (08:22)
[2021-04-07] MEDS: CARBIDOPA-LEVODOPA 25-100 MG 1 EACH TAB PO SCH ×2 (08:22→20:21)
[2021-04-07] MEDS: ISOSORBIDE MONONITRATE ER 30 MG TAB.ER.24H PO SCH (08:22)
[2021-04-07] MEDS: SUCRALFATE 1 GM TAB PO SCH ×2 (08:22→20:21)
[2021-04-07] MEDS: ASPIRIN 81 MG PO SCH (08:22)
[2021-04-07] MEDS: CYANOCOBALAMIN 500 MCG TAB PO SCH (08:22)
[2021-04-07 11:02] LABS: Glucose,Whole Blood 163 mg/dL (75-99)
--- NOTE | 2021-04-07 11:21 | P.PN ---
Subjective Progress Note Date: 04/07/21 HISTORY OF PRESENT ILLNESS: This is a 86-year-old male with a past medical history significant for with coronary artery disease with three-vessel CABG in 2009, CVA, hypertension, hyp erlipidemia, and atrial fibrillation on anticoagulation secondary to falls. Patient follows in the office with Dr. Harris. We have been asked to see the patient in consultation for arrhythmia. Patient was recently hospitalized in February 2021 for generalized weakness and diarrhea. Cardiology evaluated the patient at that time for nonsustained ventricular tachycardia. Patient had an echocardiogram completed at that time revealing ejection fraction 55-60%, trace mitral regurgitation, and trace tricuspid regurgitation. Patient is admitted to the hospital secondary to urinary and stool incontinence for the last 3-4 days. Patient examined at the bedside. Patient denies any chest pain or pressure. He denies shortness of breath. He denies dizziness or lightheadedness. He denies palpitations. Telemetry tracings reviewed revealing sinus mechanism with frequent PVCs. Multiple saved strips reveal artifact rather than ventricular tachycardia. Patient had a 30 day event monitor in March 2020 revealing frequent PVCs, bigeminy, and trigeminy. Sinus bradycardia in the 50s. No significant AV block. Patient underwent nuclear stress test in 2014 which was negative for ischemia EKG reveals sinus mechanism with frequent PVCs Laboratory data: WBC 11.5. Hemoglobin 12.9. Platelet count 208. Sodium 132. Potassium 4.6. BUN 46. Creatinine 1.98. Lactic acid 1.2. Magnesium 2.3. Troponin 0.013. Current home cardiac medications include Aldactone 12.5 mg daily, Lasix 40 mg every 48 hours, Norvasc 10 mg daily, simvastatin 40 mg daily, metoprolol tartrate 50 mg twice a day, Imdur 30 mg daily 04/07/2021 Patient examined this morning at the bedside. Patient denies chest pain or pressure. He denies shortness of breath. Denies dizziness or lightheadedness. Patient had an episode yesterday where he became hypotensive and bradycardic. Telemetry reviewed revealing no further episodes of bradycardia. Patient states he has not been out of bed yet today. PHYSICAL EXAM: VITAL SIGNS: Reviewed. GENERAL: Well-developed in no acute distress. HEENT: Head is normocephalic. Pupils are equal, round. Sclerae anicteric. Mucous membranes of the mouth are moist. Neck supple. No JVD or thyromegaly LUNGS: Respirations even and unlabored. Lungs essentially clear to auscultation bilaterally. HEART: Regular rate and rhythm. S1 and S2 heard. ABDOMEN: Soft. Nondistended. Nontender. EXTREMITIES: Normal range of motion. No clubbing or cyanosis. Peripheral pulses intact. No lower extremity edema NEUROLOGIC: Awake and alert. Oriented x 3. ASSESSMENT: Urinary and bowel incontinence Parkinson's disease Chronic kidney disease History of nonsustained ventricular tachycardia History of known frequent PVCs, bigeminy, and trigeminy Paroxysmal atrial fibrillation, not on anticoagulation secondary to frequent falls Coronary artery disease with CABG 2009 History of CVA Hypertension Hyperlipidemia PLAN: Continue current home cardiac medications Continue telemetry monitoring Patient encouraged to get up in the chair today to see how he does. If patient remains stable he may be discharged home to from a cardiac standpoint Nurse practitioner note has been reviewed by physician. Signing provider agrees with the documented findings, assessment, and plan of care. Objective - Vital Signs Vital signs: Vital Signs Temp 97.7 F 04/07/21 07:39 Pulse 59 L 04/07/21 07:41 Resp 18 04/07/21 07:41 BP 131/61 04/07/21 07:39 Pulse Ox 98 04/07/21 07:39 Intake & Output 04/06/21 04/07/21 04/07/21 18:59 06:59 18:59 Intake Total 480 120 Output Total 401 Balance 480 -401 120 Weight 91 kg Intake: Oral 480 120 Output: Urine 400 Urine/Stool Mix 1 Other: Voiding Method Diaper Diaper Diaper # Voids 1 1 1 # Bowel Movements 1 3 - Labs CBC & Chem 7: 04/04/21 07:34 04/04/21 07:34 Labs: Abnormal Lab Results - Last 24 Hours (Table) 04/06/21 04/06/21 04/06/21 Range/Units 11:35 17:06 20:29 POC Glucose (mg/dL) 134 H 190 H 196 H (75-99) mg/dL 04/07/21 04/07/21 Range/Units 06:08 11:01 POC Glucose (mg/dL) 132 H 163 H (75-99) mg/dL Microbiology - Last 24 Hours (Table) 04/04/21 12:53 Stool Culture - Preliminary Stool
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
[2021-04-07 16:06] LABS: Glucose,Whole Blood 209 mg/dL (75-99)
[2021-04-07] MEDS: amLODIPine 5 MG TAB PO SCH (20:21)
[2021-04-07] MEDS: ATORVASTATIN 20 MG TAB PO SCH (20:21)
[2021-04-07 20:39] LABS: Glucose,Whole Blood 194 mg/dL (75-99)
[2021-04-08 06:44] LABS: Glucose,Whole Blood 127 mg/dL (75-99)
[2021-04-08] MEDS: SUCRALFATE 1 GM TAB PO SCH ×2 (08:56→21:03)
[2021-04-08] MEDS: ISOSORBIDE MONONITRATE ER 30 MG TAB.ER.24H PO SCH (08:56)
[2021-04-08] MEDS: TAMSULOSIN 0.4 MG CAP.ER.24H PO SCH (08:56)
[2021-04-08] MEDS: CYANOCOBALAMIN 500 MCG TAB PO SCH (08:56)
[2021-04-08] MEDS: ASPIRIN 81 MG PO SCH (08:56)
[2021-04-08] MEDS: GABAPENTIN 100 MG CAP PO SCH ×2 (08:56→21:04)
[2021-04-08] MEDS: CARBIDOPA-LEVODOPA 25-100 MG 1 EACH TAB PO SCH ×2 (08:57→21:03)
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
[2021-04-08 11:50] LABS: Glucose,Whole Blood 131 mg/dL (75-99)
[2021-04-08] MEDS: SODIUM CHLORIDE 0.9% 1,000 ML IV SCH (12:00)
[2021-04-08 16:49] LABS: Glucose,Whole Blood 134 mg/dL (75-99)
[2021-04-08 20:29] LABS: Glucose,Whole Blood 384 mg/dL (75-99)
[2021-04-08] MEDS: ATORVASTATIN 20 MG TAB PO SCH (21:04)
[2021-04-08] MEDS: amLODIPine 5 MG TAB PO SCH (21:04)
[2021-04-08] MEDS: INSULIN ASPART (NovoLOG) 100 UNIT/ML VIAL SQ SCH (21:04)
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
[2021-04-09] MEDS: SODIUM CHLORIDE 0.9% 1,000 ML IV SCH ×2 (06:23→21:20)
[2021-04-09 06:34] LABS: Glucose,Whole Blood 107 mg/dL (75-99)
[2021-04-09] MEDS: INSULIN ASPART (NovoLOG) 100 UNIT/ML VIAL SQ SCH ×4 (06:34→20:06)
[2021-04-09] MEDS: ASPIRIN 81 MG PO SCH (08:20)
[2021-04-09] MEDS: SUCRALFATE 1 GM TAB PO SCH ×2 (08:21→20:06)
[2021-04-09] MEDS: TAMSULOSIN 0.4 MG CAP.ER.24H PO SCH (08:21)
[2021-04-09] MEDS: ISOSORBIDE MONONITRATE ER 30 MG TAB.ER.24H PO SCH (08:21)
[2021-04-09] MEDS: CARBIDOPA-LEVODOPA 25-100 MG 1 EACH TAB PO SCH ×2 (08:21→20:06)
[2021-04-09] MEDS: CYANOCOBALAMIN 500 MCG TAB PO SCH (08:21)
[2021-04-09] MEDS: GABAPENTIN 100 MG CAP PO SCH ×2 (08:21→20:06)
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
[2021-04-09 12:02] LABS: Glucose,Whole Blood 159 mg/dL (75-99)
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
[2021-04-09 16:56] LABS: Glucose,Whole Blood 82 mg/dL (75-99)
[2021-04-09 19:55] LABS: Glucose,Whole Blood 174 mg/dL (75-99)
[2021-04-09] MEDS: amLODIPine 5 MG TAB PO SCH (20:06)
[2021-04-09] MEDS: ATORVASTATIN 20 MG TAB PO SCH (20:06)
[2021-04-10 05:50] LABS: Glucose,Whole Blood 99 mg/dL (75-99)
[2021-04-10] MEDS: INSULIN ASPART (NovoLOG) 100 UNIT/ML VIAL SQ SCH ×4 (06:01→20:30)
[2021-04-10 07:41] LABS: Basophils % (A) 0 %; Eosinophils # (A) 0.2 k/uL (0-0.7); Eosinophils % (A) 3 %; HCT 30.9 % (39.0-53.0); HGB 10.5 gm/dL (13.0-17.5); Lymphocytes # (A) 1.1 k/uL (1.0-4.8); Lymphocytes % (A) 12 %; MCH 32.7 pg (25.0-35.0); MCHC 34.1 g/dL (31.0-37.0); Mean Platelet Volume 8.2; Monocytes # (A) 0.8 k/uL (0-1.0); Monocytes % (A) 10 %; Neutrophils # (A) 6.4 k/uL (1.3-7.7); Neutrophils % (A) 74 %; Platelet Count 143 k/uL (150-450); RBC 3.22 m/uL (4.30-5.90); RDW 12.9 % (11.5-15.5); WBC 8.7 k/uL (3.8-10.6)
[2021-04-10 07:55] LABS: Calcium 8.2 mg/dL (8.4-10.2); Potassium 5.2 mmol/L (3.5-5.1)
[2021-04-10] MEDS: ASPIRIN 81 MG PO SCH (08:31)
[2021-04-10] MEDS: SUCRALFATE 1 GM TAB PO SCH ×2 (08:31→20:30)
[2021-04-10] MEDS: GABAPENTIN 100 MG CAP PO SCH ×2 (08:31→20:30)
[2021-04-10] MEDS: CYANOCOBALAMIN 500 MCG TAB PO SCH (08:32)
[2021-04-10] MEDS: CARBIDOPA-LEVODOPA 25-100 MG 1 EACH TAB PO SCH ×2 (08:32→20:29)
[2021-04-10] MEDS: TAMSULOSIN 0.4 MG CAP.ER.24H PO SCH (08:32)
[2021-04-10] MEDS: ISOSORBIDE MONONITRATE ER 30 MG TAB.ER.24H PO SCH (08:32)
[2021-04-10 11:52] LABS: Glucose,Whole Blood 118 mg/dL (75-99)
[2021-04-10 13:39] VITALS: BMI 26.4
[2021-04-10] MEDS: SODIUM CHLORIDE 0.9% 1,000 ML IV SCH (15:39)
[2021-04-10 16:22] LABS: Glucose,Whole Blood 229 mg/dL (75-99)
[2021-04-10 19:59] LABS: Glucose,Whole Blood 148 mg/dL (75-99)
[2021-04-10] MEDS: amLODIPine 5 MG TAB PO SCH (20:28)
[2021-04-10] MEDS: ATORVASTATIN 20 MG TAB PO SCH (20:29)
[2021-04-11 06:04] LABS: Glucose,Whole Blood 135 mg/dL (75-99)
[2021-04-11] MEDS: INSULIN ASPART (NovoLOG) 100 UNIT/ML VIAL SQ SCH ×4 (06:10→20:44)
[2021-04-11] MEDS: TAMSULOSIN 0.4 MG CAP.ER.24H PO SCH (09:26)
[2021-04-11] MEDS: GABAPENTIN 100 MG CAP PO SCH ×2 (09:26→20:44)
[2021-04-11] MEDS: ISOSORBIDE MONONITRATE ER 30 MG TAB.ER.24H PO SCH (09:26)
[2021-04-11] MEDS: SUCRALFATE 1 GM TAB PO SCH ×2 (09:26→20:44)
[2021-04-11] MEDS: CARBIDOPA-LEVODOPA 25-100 MG 1 EACH TAB PO SCH ×2 (09:26→20:44)
[2021-04-11] MEDS: CYANOCOBALAMIN 500 MCG TAB PO SCH (09:26)
[2021-04-11] MEDS: ASPIRIN 81 MG PO SCH (09:26)
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
[2021-04-11 11:42] LABS: Glucose,Whole Blood 151 mg/dL (75-99)
[2021-04-11 16:50] LABS: Glucose,Whole Blood 106 mg/dL (75-99)
[2021-04-11 19:56] LABS: Glucose,Whole Blood 267 mg/dL (75-99)
[2021-04-11] MEDS: ATORVASTATIN 20 MG TAB PO SCH (20:43)
[2021-04-11] MEDS: amLODIPine 5 MG TAB PO SCH (20:43)
[2021-04-12 06:01] LABS: Glucose,Whole Blood 109 mg/dL (75-99)
[2021-04-12] MEDS: INSULIN ASPART (NovoLOG) 100 UNIT/ML VIAL SQ SCH ×2 (06:06→11:52)
[2021-04-12] MEDS: CARBIDOPA-LEVODOPA 25-100 MG 1 EACH TAB PO SCH (09:13)
[2021-04-12] MEDS: CYANOCOBALAMIN 500 MCG TAB PO SCH (09:13)
[2021-04-12] MEDS: ASPIRIN 81 MG PO SCH (09:13)
[2021-04-12] MEDS: SUCRALFATE 1 GM TAB PO SCH (09:13)
[2021-04-12] MEDS: ISOSORBIDE MONONITRATE ER 30 MG TAB.ER.24H PO SCH (09:13)
[2021-04-12] MEDS: TAMSULOSIN 0.4 MG CAP.ER.24H PO SCH (09:13)
[2021-04-12] MEDS: GABAPENTIN 100 MG CAP PO SCH (09:13)
[2021-04-12 11:33] LABS: Glucose,Whole Blood 120 mg/dL (75-99)
[2021-04-12 12:11] VITALS: BP 122/59; PULSE 75; RESP 16; TEMP 98
== END 2021-04-12 13:42 | disposition home health service (06) | DRG 392 ==
LOC: EC 06:22 → 3SCARD 07:21 → UNDODISIN 12:42
PROVIDERS: ADMIT Family Medicine; ATTEND Family Medicine
DX: R15.9 Full incontinence of feces (principal); S32.010A Wedge compression fracture of first lumbar vertebra, initial encounter for closed fracture; S32.020A Wedge compression fracture of second lumbar vertebra, initial encounter for closed fracture; N18.4 Chronic kidney disease, stage 4 (severe); M50.00 Cervical disc disorder with myelopathy, unspecified cervical region; M80.08XA Age-related osteoporosis with current pathological fracture, vertebra(e), initial encounter for fracture; R32 Unspecified urinary incontinence; R00.1 Bradycardia, unspecified; G20 Parkinson's disease; E11.22 Type 2 diabetes mellitus with diabetic chronic kidney disease; J43.9 Emphysema, unspecified; I12.9 Hypertensive chronic kidney disease with stage 1 through stage 4 chronic kidney disease, or unspecified chronic kidney disease; D63.1 Anemia in chronic kidney disease; I95.9 Hypotension, unspecified; I48.0 Paroxysmal atrial fibrillation; E78.5 Hyperlipidemia, unspecified; I25.10 Atherosclerotic heart disease of native coronary artery without angina pectoris; M51.36 Other intervertebral disc degeneration, lumbar region; M47.818 Spondylosis without myelopathy or radiculopathy, sacral and sacrococcygeal region; M48.061 Spinal stenosis, lumbar region without neurogenic claudication; K21.9 Gastro-esophageal reflux disease without esophagitis; N40.0 Benign prostatic hyperplasia without lower urinary tract symptoms; K08.89 Other specified disorders of teeth and supporting structures; G89.29 Other chronic pain; M54.9 Dorsalgia, unspecified; I49.3 Ventricular premature depolarization; K80.20 Calculus of gallbladder without cholecystitis without obstruction; M13.0 Polyarthritis, unspecified; R29.6 Repeated falls; R26.2 Difficulty in walking, not elsewhere classified; Z79.82 Long term (current) use of aspirin; Z79.899 Other long term (current) drug therapy; Z87.891 Personal history of nicotine dependence; Z87.828 Personal history of other (healed) physical injury and trauma; Z86.73 Personal history of transient ischemic attack (TIA), and cerebral infarction without residual deficits; Z87.81 Personal history of (healed) traumatic fracture; Z95.1 Presence of aortocoronary bypass graft; Z87.39 Personal history of other diseases of the musculoskeletal system and connective tissue; Z98.42 Cataract extraction status, left eye; Z98.41 Cataract extraction status, right eye; Z96.1 Presence of intraocular lens; Z96.653 Presence of artificial knee joint, bilateral; Z86.69 Personal history of other diseases of the nervous system and sense organs; Z98.890 Other specified postprocedural states; Z80.42 Family history of malignant neoplasm of prostate; Z82.0 Family history of epilepsy and other diseases of the nervous system; Z80.3 Family history of malignant neoplasm of breast; Z81.8 Family history of other mental and behavioral disorders; Z83.6 Family history of other diseases of the respiratory system; Z82.49 Family history of ischemic heart disease and other diseases of the circulatory system; Z86.79 Personal history of other diseases of the circulatory system
CPT/HCPCS: 36415; 72148; 74019; 74176; 80048; 80053; 81003; 83605; 83630; 83735; 84484; 85025; 87045; 87046; 87338; 93005; 99285

== ENCOUNTER 2021-04-14 12:02 | Observation (INO) | payer MEDICARE ==
[2021-04-14] MEDS ORDERED: LORazepam 2 MG/ML INJ IV STA (12:20)
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
[2021-04-14 12:50] LABS: Basophils % (A) 0 %; Eosinophils # (A) 0.1 k/uL (0-0.7); Eosinophils % (A) 2 %; HCT 34.6 % (39.0-53.0); HGB 11.1 gm/dL (13.0-17.5); Lymphocytes # (A) 0.5 k/uL (1.0-4.8); Lymphocytes % (A) 7 %; MCH 31.7 pg (25.0-35.0); MCHC 32.1 g/dL (31.0-37.0); MCV 98.8 fL (80.0-100.0); Monocytes # (A) 0.5 k/uL (0-1.0); Monocytes % (A) 7 %; Neutrophils # (A) 5.9 k/uL (1.3-7.7); Neutrophils % (A) 83 %; Platelet Count 188 k/uL (150-450); RDW 13.5 % (11.5-15.5); WBC 7.1 k/uL (3.8-10.6)
[2021-04-14 12:59] LABS: Partial Thromboplastin Time 29.5 sec (22.0-30.0); Prothrombin Time 10.8 sec (9.0-12.0)
[2021-04-14 13:00] LABS: ALT <6 U/L (4-49); AST 20 U/L (17-59); African American GFR (CKD) 44 (>60 ml/min/1.73 sqM); Albumin 2.8 g/dL (3.5-5.0); Alkaline Phosphatase 70 U/L (38-126); Anion Gap 8 mmol/L; Blood Urea Nitrogen 32 mg/dL (9-20); Calcium 7.8 mg/dL (8.4-10.2); Carbon Dioxide 21 mmol/L (22-30); Chloride 109 mmol/L (98-107); Creatine Kinase 31 U/L (55-170); Glucose 155 mg/dL (74-99); Non-African American GFR(CKD) 38 (>60 ml/min/1.73 sqM); Potassium 4.4 mmol/L (3.5-5.1); Sodium 138 mmol/L (137-145); Total Bilirubin 0.3 mg/dL (0.2-1.3); Total Protein 5.2 g/dL (6.3-8.2)
--- NOTE | 2021-04-14 13:03 | CT ---
EXAMINATION TYPE: CT brain wo con DATE OF EXAM: 04/14/2021 COMPARISON: 04/11/2020 INDICATION: Seizure Activity DLP: 1070.4 mGycm, Automated exposure control for dose reduction was used. CONTRAST: None CT of the brain is performed utilizing 3 mm thick sections through the posterior fossa and 3 mm thick sections through the remaining calvarium. Study is performed within 24 hours of arrival to the hosp ital. No abnormal hyperdensity is present to suggest an acute intracranial hemorrhage. No mass lesion is evident. No acute infarcts are evident. Old infarcts are evident along the right frontal lobe in the left occi pital lobe. Patchy periventricular white matter changes are present greater adjacent to the anterior and mid right lateral ventricle. Ventricles and sulci are prominent for the patient age. Paranasal sinuses and mastoid air cells within the [id number] are clear. IMPRESSIONS: 1. Old right frontal and left occipital lobe infarct. 2. Periventricular white matter ischemic type changes, greater adjacent to the right lateral ventricl e. 3. Atrophy 4. No significant interval change from comparison.
[2021-04-14] MEDS ORDERED: NALOXONE 0.4 MG/ML 1 ML VIAL IV PRN (13:59)
[2021-04-14] MEDS: levETIRAcetam 500 MG TAB PO SCH ×2 (14:34→22:16)
[2021-04-14 15:12] LABS: Appearance,Urine Turbid (Clear); Bacteria,Urine Occasional /hpf; Bilirubin,Urine Negative (Negative); Blood,Urine Moderate (Negative); Color,Urine Yellow; Glucose,Urine (UA) Negative (Negative); Ketones,Urine Negative (Negative); Leukocyte Esterase,Urine Large (Negative); Nitrite,Urine Negative (Negative); PH, Urine 5.5 (5.0-8.0); Protein,Urine 1+ (Negative); RBC,Urine 11 /hpf (0-5); Squamous Epithelial Cell,Urine 1 /hpf (0-4); Urobilinogen,Urine <2.0 mg/dL (<2.0); WBC,Urine >182 /hpf (0-5)
[2021-04-14] MEDS ORDERED: cefTRIAXone IN SWFI 1,000 MG/10 ML SYRINGE IVP STA (15:56)
[2021-04-14 16:28] LABS: Glucose,Whole Blood 128 mg/dL (75-99)
[2021-04-14] MEDS ORDERED: BACLOFEN 10 MG TAB PO PRN (20:53)
[2021-04-14 20:56] LABS: Glucose,Whole Blood 133 mg/dL (75-99)
[2021-04-14] MEDS: OXYBUTYNIN CHLORIDE 5 MG TAB PO SCH (21:09)
[2021-04-14] MEDS: amLODIPine 10 MG TAB PO SCH (21:09)
[2021-04-14] MEDS: CARBIDOPA-LEVODOPA 25-100 MG 1 EACH TAB PO SCH (21:09)
[2021-04-14] MEDS: ATORVASTATIN 20 MG TAB PO SCH (21:09)
[2021-04-14] MEDS: GABAPENTIN 100 MG CAP PO SCH (21:09)
[2021-04-14] MEDS: SUCRALFATE 1 GM TAB PO SCH (21:09)
[2021-04-15 06:53] LABS: Glucose,Whole Blood 97 mg/dL (75-99)
[2021-04-15] MEDS: ASPIRIN 81 MG PO SCH (08:08)
[2021-04-15] MEDS: OXYBUTYNIN CHLORIDE 5 MG TAB PO SCH ×2 (08:08→21:15)
[2021-04-15] MEDS: GABAPENTIN 100 MG CAP PO SCH ×2 (08:08→21:15)
[2021-04-15] MEDS: TAMSULOSIN 0.4 MG CAP.ER.24H PO SCH (08:08)
[2021-04-15] MEDS: CARBIDOPA-LEVODOPA 25-100 MG 1 EACH TAB PO SCH ×2 (08:08→21:15)
[2021-04-15] MEDS: levETIRAcetam 500 MG TAB PO SCH ×2 (08:08→21:15)
[2021-04-15] MEDS: SUCRALFATE 1 GM TAB PO SCH ×2 (08:08→21:16)
[2021-04-15] MEDS: ISOSORBIDE MONONITRATE ER 30 MG TAB.ER.24H PO SCH (08:08)
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
[2021-04-15 11:45] LABS: Basophils # (A) 0.03 X 10*3/uL (0.00-0.10); Basophils % (A) 0.6 %; Eosinophils # (A) 0.16 X 10*3/uL (0.04-0.35); Eosinophils % (A) 3.2 %; HCT 33.3 % (39.6-50.0); HGB 10.4 g/dL (13.0-17.0); Lymphocytes # (A) 0.73 X 10*3/uL (0.90-5.00); Lymphocytes % (A) 14.8 %; MCH 31.3 pg (27.0-32.0); MCHC 31.2 g/dL (32.0-37.0); MCV 100.3 fL (80.0-97.0); Mean Platelet Volume 10.8 fL (9.5-12.2); Monocytes # (A) 0.83 X 10*3/uL (0.20-1.00); Monocytes % (A) 16.8 %; Neutrophils # (A) 3.17 X 10*3/uL (1.80-7.70); Neutrophils % (A) 64.4 %; Platelet Count 176 X 10*3/uL (140-440); RBC 3.32 X 10*6/uL (4.40-5.60); RDW 12.8 % (11.5-14.5); WBC 4.93 X 10*3/uL (4.50-10.00)
[2021-04-15 11:59] LABS: African American GFR (CKD) 44.9 (60.0-200.0); Anion Gap 6.7 mmol/L (4.00-12.00); BUN/Creat Ratio 20.63 Ratio (12.00-20.00); Calcium 8.1 mg/dL (8.7-10.3); Carbon Dioxide 26.3 mmol/L (21.6-31.8); Non-African American GFR(CKD) 38.7 (60.0-200.0); Potassium 4.8 mmol/L (3.5-5.5)
[2021-04-15 13:31] LABS: Glucose,Whole Blood 155 mg/dL (75-99)
[2021-04-15 16:47] LABS: Glucose,Whole Blood 132 mg/dL (75-99)
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
[2021-04-15 20:15] LABS: Glucose,Whole Blood 111 mg/dL (75-99)
[2021-04-15] MEDS: amLODIPine 10 MG TAB PO SCH (21:15)
[2021-04-15] MEDS: ATORVASTATIN 20 MG TAB PO SCH (21:15)
[2021-04-16 06:40] LABS: Glucose,Whole Blood 111 mg/dL (75-99)
[2021-04-16] MEDS: CARBIDOPA-LEVODOPA 25-100 MG 1 EACH TAB PO SCH ×2 (08:46→20:17)
[2021-04-16] MEDS: SUCRALFATE 1 GM TAB PO SCH ×2 (08:46→20:17)
[2021-04-16] MEDS: ASPIRIN 81 MG PO SCH (08:46)
[2021-04-16] MEDS: GABAPENTIN 100 MG CAP PO SCH ×2 (08:46→20:17)
[2021-04-16] MEDS: TAMSULOSIN 0.4 MG CAP.ER.24H PO SCH (08:46)
[2021-04-16] MEDS: levETIRAcetam 500 MG TAB PO SCH ×2 (08:46→20:17)
[2021-04-16] MEDS: OXYBUTYNIN CHLORIDE 5 MG TAB PO SCH ×2 (08:46→20:17)
[2021-04-16] MEDS: ISOSORBIDE MONONITRATE ER 30 MG TAB.ER.24H PO SCH (08:46)
[2021-04-16 11:40] LABS: Glucose,Whole Blood 119 mg/dL (75-99)
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
--- NOTE | 2021-04-16 12:56 | P.PN ---
Subjective Progress Note Date: 04/16/21 HISTORY OF PRESENT ILLNESS: This is an 86-year-old male who follows in the office with Dr. Harris. Patient has a history of coronary artery disease with three-vessel CABG in 2009, CVA, hypertension, hyperlipidemia, and atrial fibrillation not on anticoagulation secondary to falls and GI bleed. Patient is admitted to the hospital secondary to new onset seizure. Patient examined this morning at the bedside. Patient denies chest pain or pressure. He denies shortness of breath. He denies dizziness or lightheadedness. No further episodes of syncope or seizure activity. Telemetry reveals sinus mechanism in the 60s. Echocardiogram completed in February 2021 reveals ejection fraction 55-60%. Trace mitral regurgitation. Trace tricuspid regurgitation. PHYSICAL EXAM: VITAL SIGNS: Reviewed. GENERAL: Well-developed in no acute distress. NECK: Supple. No JVD or thyromegaly LUNGS: Respirations even and unlabored. Lungs essentially clear to auscultation bilaterally. HEART: Regular rate and rhythm. S1 and S2 heard. EXTREMITIES: Normal range of motion. No clubbing or cyanosis. Peripheral pulses intact. No lower extremity edema ASSESSMENT: New-onset seizures Symptomatic bradycardia Parkinson's disease Chronic kidney disease History of nonsustained atrial tachycardia Known history of frequent PVCs, bigeminy, and trigeminy Paroxysmal atrial fibrillation, not on anticoagulation secondary to frequent falls and GI bleeding Coronary artery disease with CABG 2009 History of CVA Hypertension Hyperlipidemia PLAN: Continue to avoid AV eric blocking agents No PPM at this time per Dr. Hendrix 30 day event monitor at discharge Further recommendations pending patient course Nurse practitioner note has been reviewed by physician. Signing provider agrees with the documented findings, assessment, and plan of care. Objective - Vital Signs Vital signs: Vital Signs Temp 97.8 F 04/16/21 08:00 Pulse 75 04/16/21 08:00 Resp 18 04/16/21 08:00 BP 125/61 04/16/21 08:00 Pulse Ox 95 04/16/21 08:00 Intake & Output 04/15/21 04/16/21 04/16/21 18:59 06:59 18:59 Intake Total 240 240 Output Total 700 200 Balance -460 -200 240 Weight 73.482 kg Intake: Oral 240 240 Output: Urine 700 200 Male - External 100 Other: Voiding Method External Catheter External Catheter # Voids 1 - Labs CBC & Chem 7: 04/15/21 06:51 04/15/21 06:51 Labs: Abnormal Lab Results - Last 24 Hours (Table) 04/15/21 04/15/21 04/15/21 Range/Units 13:28 16:44 20:14 POC Glucose (mg/dL) 155 H 132 H 111 H (75-99) mg/dL 04/16/21 04/16/21 Range/Units 06:11 11:39 POC Glucose (mg/dL) 111 H 119 H (75-99) mg/dL
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
--- NOTE | 2021-04-16 17:02 | EEG ---
ELECTROENCEPHALOGRAM REPORT DATE OF SERVICE: 04/16/2021. CLINICAL HISTORY: This is an 86-year-old gentleman with history of strokes (over the right frontal and left occipital region) with syncopal episode. This video EEG is obtained to evaluate for seizure and epileptiform activity. RELEVANT MEDICATION: Keppra. DESCRIPTION: Wakefulness and brief drowsiness are obtained. During wakefulness, there is a posterior dominant rhythm of low to moderate voltage, well modulated, of 6.5-7 hertz activity. During brief drowsiness, there is slowing and attenuation of the background activity. There was no physiological stage 2 sleep architecture. There is no focal slowing. Interictal and ictal are none. ACTIVATION PROCEDURE: Photic stimulation did not evoke a posterior driving response. There is no abnormality on photic stimulation. Hyperventilation is not performed. CLINICAL INTERPRETATION: This is an abnormal routine EEG. The background slowing is suggestive of mild encephalopathy. There are no focal slowing, epileptiform discharge or seizure on the EEG. Clinical correlation is recommended. KELLEY / SAPNAN: [id number] / ARIANA
[2021-04-16 17:09] LABS: Glucose,Whole Blood 147 mg/dL (75-99)
[2021-04-16] MEDS: amLODIPine 10 MG TAB PO SCH (20:17)
[2021-04-16] MEDS: ATORVASTATIN 20 MG TAB PO SCH (20:17)
[2021-04-16 20:44] LABS: Glucose,Whole Blood 140 mg/dL (75-99)
[2021-04-17 06:40] LABS: Glucose,Whole Blood 112 mg/dL (75-99)
[2021-04-17] MEDS: OXYBUTYNIN CHLORIDE 5 MG TAB PO SCH ×2 (09:56→20:49)
[2021-04-17] MEDS: ASPIRIN 81 MG PO SCH (09:57)
[2021-04-17] MEDS: ISOSORBIDE MONONITRATE ER 30 MG TAB.ER.24H PO SCH (09:57)
[2021-04-17] MEDS: levETIRAcetam 500 MG TAB PO SCH ×2 (09:57→20:49)
[2021-04-17] MEDS: CARBIDOPA-LEVODOPA 25-100 MG 1 EACH TAB PO SCH ×2 (09:57→20:48)
[2021-04-17] MEDS: SUCRALFATE 1 GM TAB PO SCH ×2 (09:57→20:49)
[2021-04-17] MEDS: TAMSULOSIN 0.4 MG CAP.ER.24H PO SCH (09:57)
[2021-04-17] MEDS: GABAPENTIN 100 MG CAP PO SCH ×2 (09:57→20:49)
--- NOTE | 2021-04-17 11:03 | P.PN ---
Subjective Progress Note Date: 04/17/21 HISTORY OF PRESENT ILLNESS: This is an 86-year-old male who follows in the office with Dr. Harris. Patient has a history of coronary artery disease with three-vessel CABG in 2009, CVA, hypertension, hyperlipidemia, and atrial fibrillation not on anticoagulation secondary to falls and GI bleed. Patient is admitted to the hospital secondary to new onset seizure. Patient examined this morning at the bedside. Patient denies chest pain or pressure. He denies shortness of breath. He denies dizziness or lightheadedness. No further episodes of syncope or seizure activity. Telemetry reveals sinus mechanism in the 60s. Echocardiogram completed in February 2021 reveals ejection fraction 55-60%. Trace mitral regurgitation. Trace tricuspid regurgitation. 04/17/2021 Patient examined this morning at the bedside. Patient denies chest pain or pressure. He denies shortness of breath. No further syncopal episodes. Telemetry reveals sinus mechanism in the 60s. PHYSICAL EXAM: VITAL SIGNS: Reviewed. GENERAL: Well-developed in no acute distress. NECK: Supple. No JVD or thyromegaly LUNGS: Respirations even and unlabored. Lungs essentially clear to auscultation bilaterally. HEART: Regular rate and rhythm. S1 and S2 heard. EXTREMITIES: Normal range of motion. No clubbing or cyanosis. Peripheral pulses intact. No lower extremity edema ASSESSMENT: New-onset seizures Symptomatic bradycardia Parkinson's disease Chronic kidney disease History of nonsustained atrial tachycardia Known history of frequent PVCs, bigeminy, and trigeminy Paroxysmal atrial fibrillation, not on anticoagulation secondary to frequent falls and GI bleeding Coronary artery disease with CABG 2009 History of CVA Hypertension Hyperlipidemia PLAN: Continue to avoid AV eric blocking agents No PPM at this time per Dr. Hendrix 30 day event monitor at discharge. This will be placed at the cardiology office post discharge. Further recommendations pending patient course Nurse practitioner note has been reviewed by physician. Signing provider agrees with the documented findings, assessment, and plan of care. Objective - Vital Signs Vital signs: Vital Signs Temp 98.6 F 04/17/21 03:44 Pulse 76 04/17/21 03:44 Resp 18 04/17/21 03:44 BP 101/52 04/17/21 03:44 Pulse Ox 95 04/17/21 03:44 Intake & Output 04/16/21 04/17/21 04/17/21 18:59 06:59 18:59 Intake Total 820 360 Output Total 125 200 Balance 695 -200 360 Weight 73.482 kg 73 kg Intake: Oral 820 360 Output: Urine 125 200 Other: Voiding Method External Catheter External Catheter # Voids 1 - Labs CBC & Chem 7: 04/15/21 06:51 04/15/21 06:51 Labs: Abnormal Lab Results - Last 24 Hours (Table) 04/16/21 04/16/21 04/16/21 Range/Units 11:39 17:07 20:39 POC Glucose (mg/dL) 119 H 147 H 140 H (75-99) mg/dL 04/17/21 Range/Units 06:30 POC Glucose (mg/dL) 112 H (75-99) mg/dL
[2021-04-17 11:30] LABS: Glucose,Whole Blood 135 mg/dL (75-99)
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
[2021-04-17 16:51] LABS: Glucose,Whole Blood 100 mg/dL (75-99)
[2021-04-17 20:43] LABS: Glucose,Whole Blood 171 mg/dL (75-99)
[2021-04-17] MEDS: ATORVASTATIN 20 MG TAB PO SCH (20:48)
[2021-04-17] MEDS: amLODIPine 10 MG TAB PO SCH (20:49)
[2021-04-18 06:00] LABS: Glucose,Whole Blood 103 mg/dL (75-99)
[2021-04-18 06:56] LABS: HGB 9.8 gm/dL (13.0-17.5); MCH 32.6 pg (25.0-35.0); MCHC 32.9 g/dL (31.0-37.0); MCV 99.2 fL (80.0-100.0); Mean Platelet Volume 8.1; Platelet Count 193 k/uL (150-450); RBC 3.02 m/uL (4.30-5.90); WBC 6.7 k/uL (3.8-10.6)
[2021-04-18 07:13] LABS: Calcium 8.1 mg/dL (8.4-10.2); Potassium 5.3 mmol/L (3.5-5.1)
[2021-04-18] MEDS: OXYBUTYNIN CHLORIDE 5 MG TAB PO SCH ×2 (08:47→20:45)
[2021-04-18] MEDS: ISOSORBIDE MONONITRATE ER 30 MG TAB.ER.24H PO SCH (08:47)
[2021-04-18] MEDS: CARBIDOPA-LEVODOPA 25-100 MG 1 EACH TAB PO SCH ×2 (08:47→20:46)
[2021-04-18] MEDS: SUCRALFATE 1 GM TAB PO SCH ×2 (08:47→20:46)
[2021-04-18] MEDS: ASPIRIN 81 MG PO SCH (08:47)
[2021-04-18] MEDS: TAMSULOSIN 0.4 MG CAP.ER.24H PO SCH (08:47)
[2021-04-18] MEDS: levETIRAcetam 500 MG TAB PO SCH ×2 (08:47→20:46)
[2021-04-18] MEDS: GABAPENTIN 100 MG CAP PO SCH ×2 (08:47→20:46)
[2021-04-18 11:40] LABS: Glucose,Whole Blood 141 mg/dL (75-99)
[2021-04-18 14:08] VITALS: BMI 21.5
--- NOTE | 2021-04-18 14:27 | P.PN ---
Subjective This is an 86-year-old male who follows in the office with Dr. Harris. Patient has a history of coronary artery disease with three-vessel CABG in 2009, CVA, hypertension, hyperlipidemia, and atrial fibrillation not on anticoagulation secondary to falls and GI bleed. Patient is admitted to the hospital secondary to new onset seizure. Patient examined this morning at the bedside. Patient denies chest pain or pressure. He denies shortness of breath. He denies dizziness or lightheadedness. No further episodes of syncope or seizure activity. Telemetry reveals sinus mechanism in the 60s. Echocardiogram completed in February 2021 reveals ejection fraction 55-60%. Trace mitral regurgitation. Trace tricuspid regurgitation. 04/18/2021 Patient examined this morning at the bedside. Patient denies chest pain or pressure. He denies shortness of breath. No further syncopal episodes. Telemetry reveals sinus mechanism in the 60-80s. No evidence of bradycardia noted. Blood pressure 125/63, heart rate 85. Laboratory data reviewed. PHYSICAL EXAM: VITAL SIGNS: Reviewed. GENERAL: Well-developed in no acute distress. NECK: Supple. No JVD or thyromegaly LUNGS: Respirations even and unlabored. Lungs essentially clear to auscultation bilaterally. HEART: Regular rate and rhythm. S1 and S2 heard. EXTREMITIES: Normal range of motion. No clubbing or cyanosis. Peripheral pulses intact. No lower extremity edema ASSESSMENT: New-onset seizures Symptomatic bradycardia Parkinson's disease Chronic kidney disease History of nonsustained atrial tachycardia Known history of frequent PVCs, bigeminy, and trigeminy Paroxysmal atrial fibrillation, not on anticoagulation secondary to frequent f alls and GI bleeding Coronary artery disease with CABG 2009 History of CVA Hypertension Hyperlipidemia PLAN: Continue to avoid AV eric blocking agents 30 day event monitor at discharge. This will be placed at the cardiology office post discharge. This was updated with the patient and nursing staff. Patient to follow up with Dr. Harris Nurse practitioner note has been reviewed by physician. Signing provider agrees with the documented findings, assessment, and plan of care. Objective - Vital Signs Vital signs: Vital Signs Temp 97.8 F 04/18/21 04:00 Pulse 85 04/18/21 12:00 Resp 16 04/18/21 12:00 BP 125/63 04/18/21 12:00 Pulse Ox 97 04/18/21 12:00 Intake & Output 04/17/21 04/18/21 04/18/21 18:59 06:59 18:59 Intake Total 780 120 Output Total 1020 Balance 780 -1020 120 Weight 74 kg 74 kg Intake: Oral 780 120 Output: Urine 420 Stool 600 Other: Voiding Method External Catheter External Catheter External Catheter # Voids 1 1 # Bowel Movements 1 - Labs CBC & Chem 7: 04/18/21 06:28 04/18/21 06:28 Labs: Abnormal Lab Results - Last 24 Hours (Table) 04/17/21 04/17/21 04/18/21 Range/Units 16:47 20:40 06:00 RBC (4.30-5.90) m/uL Hgb (13.0-17.5) gm/dL Hct (39.0-53.0) % Potassium (3.5-5.1) mmol/L Chloride (98-107) mmol/L BUN (9-20) mg/dL Creatinine (0.66-1.25) mg/dL POC Glucose (mg/dL) 100 H 171 H 103 H (75-99) mg/dL Calcium (8.4-10.2) mg/dL 04/18/21 04/18/21 04/18/21 Range/Units 06:28 06:28 11:38 RBC 3.02 L (4.30-5.90) m/uL Hgb 9.8 L (13.0-17.5) gm/dL Hct 30.0 L (39.0-53.0) % Potassium 5.3 H (3.5-5.1) mmol/L Chloride 109 H (98-107) mmol/L BUN 39 H (9-20) mg/dL Creatinine 1.70 H (0.66-1.25) mg/dL POC Glucose (mg/dL) 141 H (75-99) mg/dL Calcium 8.1 L (8.4-10.2) mg/dL
[2021-04-18 16:24] LABS: Glucose,Whole Blood 108 mg/dL (75-99)
[2021-04-18] MEDS: amLODIPine 10 MG TAB PO SCH (20:46)
[2021-04-18] MEDS: ATORVASTATIN 20 MG TAB PO SCH (20:46)
[2021-04-18 22:33] LABS: Glucose,Whole Blood 179 mg/dL (75-99)
[2021-04-19 06:19] LABS: Glucose,Whole Blood 109 mg/dL (75-99)
[2021-04-19] MEDS: SUCRALFATE 1 GM TAB PO SCH (08:20)
[2021-04-19] MEDS: ASPIRIN 81 MG PO SCH (08:20)
[2021-04-19] MEDS: OXYBUTYNIN CHLORIDE 5 MG TAB PO SCH (08:20)
[2021-04-19] MEDS: ISOSORBIDE MONONITRATE ER 30 MG TAB.ER.24H PO SCH (08:20)
[2021-04-19] MEDS: levETIRAcetam 500 MG TAB PO SCH (08:20)
[2021-04-19] MEDS: CARBIDOPA-LEVODOPA 25-100 MG 1 EACH TAB PO SCH (08:21)
[2021-04-19] MEDS: GABAPENTIN 100 MG CAP PO SCH (08:21)
[2021-04-19] MEDS: TAMSULOSIN 0.4 MG CAP.ER.24H PO SCH (08:21)
[2021-04-19 08:24] VITALS: RESP 16; TEMP 98.3
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
[2021-04-19 11:39] LABS: Glucose,Whole Blood 129 mg/dL (75-99)
[2021-04-19 12:29] VITALS: BP 106/55; PULSE 75
--- NOTE | 2021-04-19 14:16 | P.PN ---
Subjective This is an 86-year-old male who follows in the office with Dr. Harris. Patient has a history of coronary artery disease with three-vessel CABG in 2009, CVA, hypertension, hyperlipidemia, and atrial fibrillation not on anticoagulation secondary to falls and GI bleed. Patient is admitted to the hospital secondary to new onset seizure. Patient examined this morning at the bedside. Patient denies chest pain or pressure. He denies shortness of breath. He denies dizziness or lightheadedness. No further episodes of syncope or seizure activity. Telemetry reveals sinus mechanism in the 60s. Echocardiogram completed in February 2021 reveals ejection fraction 55-60%. Trace mitral regurgitation. Trace tricuspid regurgitation. 04/19/2021 Patient examined this morning at the bedside. Patient denies chest pain or pressure. He denies shortness of breath. No further syncopal episodes. Telemetry reveals sinus mechanism in the 60-80s. No evidence of bradycardia noted. Blood pressure 116/67, heart rate 72, afebrile, maintaining oxygen saturation is on room air. Laboratory data reviewed from 04/18/21. PHYSICAL EXAM: VITAL SIGNS: Reviewed. GENERAL: Well-developed in no acute distress. NECK: Supple. No JVD or thyromegaly LUNGS: Respirations even and unlabored. Lungs essentially clear to auscultation bilaterally. HEART: Regular rate and rhythm. S1 and S2 heard. EXTREMITIES: Normal range of motion. No clubbing or cyanosis. Peripheral pulses intact. No lower extremity edema ASSESSMENT: New-onset seizures Symptomatic bradycardia Parkinson's disease Chronic kidney disease History of nonsustained atrial tachycardia Known history of frequent PVCs, bigeminy, and trigeminy Paroxysmal atrial fibrillation, not on anticoagulation secondary to frequent falls and GI bleeding Coronary artery disease with CABG 2009 History of CVA Hypertension Hyperlipidemia PLAN: Continue to avoid AV eric blocking agents 30 day event monitor at discharge. This was to be placed at the cardiology office, however, patient being discharged today. Recommend placing event monitor before patient is discharged. Nursing staff and patient updated. Patient to follow up with Dr. Harris Nurse practitioner note has been reviewed by physician. Signing provider agrees with the documented findings, assessment, and plan of care. Objective - Vital Signs Vital signs: Vital Signs Temp 98.3 F 04/19/21 08:00 Pulse 75 04/19/21 12:00 Resp 16 04/19/21 12:00 BP 106/55 04/19/21 12:00 Pulse Ox 96 04/19/21 12:00 Intake & Output 04/18/21 04/19/21 04/19/21 18:59 06:59 18:59 Intake Total 240 480 Balance 240 480 Weight 74 kg Intake: Oral 240 480 Other: Voiding Method External Catheter External Catheter External Catheter # Voids 1 1 - Labs CBC & Chem 7: 04/18/21 06:28 04/18/21 06:28 Labs: Abnormal Lab Results - Last 24 Hours (Table) 04/18/21 04/18/21 04/19/21 Range/Units 16:22 22:31 06:17 POC Glucose (mg/dL) 108 H 179 H 109 H (75-99) mg/dL 04/19/21 Range/Units 11:37 POC Glucose (mg/dL) 129 H (75-99) mg/dL
--- NOTE | 2021-06-07 11:37 | EM ---
EVENT MONITOR THIRTY-DAY EVENT MONITOR: INDICATION: Epilepsy and syncope. This is a 30-day event monitor that the patient only wore for one day. Provided strips show that the patient was in sinus rhythm and did not have any documented tachy-or bradyarrhythmia. CONCLUSIONS: The patient only wore the event monitor for one day, and no significant tachy- or bradyarrhythmias were documented. MMODL / IJN: [id number] /
== END 2021-04-19 16:17 ==
LOC: EC 12:02 → 4SSUR 13:59 → 3SCARD 04-15 10:22 → OBSVTOIN 04-15 10:48 → INTOOBSV 04-15 10:48 → UNDODISIN 04-19 16:17
PROVIDERS: ADMIT Internal Medicine; ATTEND Internal Medicine
DX: I49.5 Sick sinus syndrome (principal); R56.9 Unspecified convulsions; I12.9 Hypertensive chronic kidney disease with stage 1 through stage 4 chronic kidney disease, or unspecified chronic kidney disease; N18.4 Chronic kidney disease, stage 4 (severe); E11.22 Type 2 diabetes mellitus with diabetic chronic kidney disease; I42.9 Cardiomyopathy, unspecified; E78.5 Hyperlipidemia, unspecified; G20 Parkinson's disease; F02.80 Dementia in other diseases classified elsewhere, unspecified severity, without behavioral disturbance, psychotic disturbance, mood disturbance, and anxiety; I69.354 Hemiplegia and hemiparesis following cerebral infarction affecting left non-dominant side; G24.9 Dystonia, unspecified; J43.9 Emphysema, unspecified; I48.0 Paroxysmal atrial fibrillation; I25.2 Old myocardial infarction; I25.10 Atherosclerotic heart disease of native coronary artery without angina pectoris; N32.81 Overactive bladder; K21.9 Gastro-esophageal reflux disease without esophagitis; R32 Unspecified urinary incontinence; G93.89 Other specified disorders of brain; N40.0 Benign prostatic hyperplasia without lower urinary tract symptoms; R29.6 Repeated falls; M19.90 Unspecified osteoarthritis, unspecified site; I49.3 Ventricular premature depolarization; I08.1 Rheumatic disorders of both mitral and tricuspid valves; K08.9 Disorder of teeth and supporting structures, unspecified; V20.2 Unspecified motorcycle rider injured in collision with pedestrian or animal in nontraffic accident; Z79.899 Other long term (current) drug therapy; Z95.1 Presence of aortocoronary bypass graft; Z96.653 Presence of artificial knee joint, bilateral; Z90.79 Acquired absence of other genital organ(s); Z96.1 Presence of intraocular lens; Z98.42 Cataract extraction status, left eye; Z98.41 Cataract extraction status, right eye; Z87.81 Personal history of (healed) traumatic fracture; Z98.890 Other specified postprocedural states; Z87.891 Personal history of nicotine dependence; Z87.19 Personal history of other diseases of the digestive system; Z82.3 Family history of stroke; Z82.49 Family history of ischemic heart disease and other diseases of the circulatory system; Z82.0 Family history of epilepsy and other diseases of the nervous system; Z83.6 Family history of other diseases of the respiratory system; Z80.3 Family history of malignant neoplasm of breast; Z80.42 Family history of malignant neoplasm of prostate
CPT/HCPCS: 99285; 96374; 36415; 95816; 93005 ×2; 93270; 97116 ×2; 97162; 97530 ×2; 97535 ×2; 97166; 80053; 80048 ×2; 82550; 83605; 83735; 85025 ×2; 85027; 85610; 85730; 81001; 70450; G0378 ×6; J2060